=== PATIENT | female | born 1990 | race Caucasian/White ===

== ENCOUNTER 2021-12-17 13:45 | Outpatient (CLI) | payer OTHER, SELFPAY ==
--- NOTE | 2021-12-17 14:00 | CRLHL7_ITS ---
For Patients: As a result of the Century Cures Act, medical imaging exams and procedure reports are released immediately into your electronic medical record. You may view this report before your referring provider. If you have questions, please contact your health care provider. INDICATION: Evaluate anatomy. COMPARISON: none TECHNIQUE: Real time hare scale imaging of the fetus was performed as well as color Doppler analysis of the umbilical vessels. FINDINGS: Sonographic imaging demonstrates a single living intrauterine gestation. Fetus demonstrates a regular cardiac rate of 148 beats per minute. Fetus has a vertex position. The placenta lies anteriorly without evidence of placenta previa. The edge of the placenta is located 6.9 cm from the internal cervical os. Amniotic fluid volume appears normal. Single deepest vertical pocket: 5.0 cm. The cervix is closed and measures 3.5 cm in length. The composite ultrasound gestational age is calculated at 21 weeks 0 days with an estimated sonographic due date of 04/29/2022. The estimated weight is 408 grams which lies at the 65th %. The following biometric measurements were obtained: Biparietal diameter: 4.7 cm/20 weeks 1 day 23rd% Head circumference: 18.7 cm/21 weeks 0 days 46th% Abdominal circumference: 16.5 cm/21 weeks 4 days 66th% Femur length: 3.5 cm/21 weeks 0 days 47th% The HC/AC ratio measures: 1.13 range (1.06-1.25) On anatomic survey, there is a normal appearance of the cerebral ventricles, cavum septi pellucidi, cisterna magna and cerebellum. The nose, lips, and facial profile appear normal. The cervical, thoracic and lumbar spine are well visualized and appear normal. There is a normal four-chamber heart view and the left and right ventricular outflow tracts appear normal. The diaphragm and stomach appear normal. The kidneys and bladder also appear normal. There is a normal three-vessel cord and cord insertion site. The four extremities appear normal. IMPRESSION: Normal OB ultrasound exam with concordance of clinical and sonographic dating. No intrinsic abnormalities noted on anatomic survey. Dictated by Shaan Cordero MD @ 12/17/2021 4:05:26 PM (Electronically Signed)
== END 2021-12-17 13:46 | disposition home or self-care (01) ==
LOC: US 13:46
PROVIDERS: Visit Provider Obstetrics & Gynecology
DX: Z34.92 Encounter for supervision of normal pregnancy, unspecified, second trimester (principal); Z3A.21 21 weeks gestation of pregnancy
CPT/HCPCS: 76805

== ENCOUNTER 2022-02-11 14:59 | Outpatient (CLI) | payer OTHER, SELFPAY ==
--- OUTSIDE RECORDS SUMMARY | 2022-02-11 11:06 | XMS_ITS | Clinical Summary ---
:1990 Author Organization [facility] [place] [address] Care Team Providers Name Role Phone Tara Villalta MD Primary Care Provider [phone] Tara Villalta MD Unavailable Allergies Active Allergy Reactions Severity Noted Date Comments Sulfa (Sulfonamide Antibiotics) Hives 6 Medications Medication Sig Dispensed Refills Start Date End Date Status vit 28/iron Take 1 Tablet by 0 07/09/2021 Active fum/folic (multivitamin mouth once folic acid 1 daily. mg) meclizine (ANTIVERT) 25 1 oral every 4 30 Tablet 1 09/10/2021 Active mg tabletIndications: hours-6hours as Vomiting or nausea of needed nausea ondansetron (ZOFRAN ODT) Place 1 Tablet 30 Tablet 0 09/10/2021 Active 4 mg disintegrating (4 mg) on the tabletIndications: tongue every 8 Vomiting or nausea of hours if needed for Nausea/Vomiting. Active Problems Problem Noted Date Pap smear for cervical cancer screening 06/26/2021 Overview: 06/2021 NIL. PLAN: Pap/HPV testing due 2024 Pelvic pain 01/27/2020 Palpitations 10/14/2018 Ureteral stone 10/14/2018 Overview: 09/2018: Your kidney stone was a calcium oxalate stone. In terms of what you can do to try to reduce future stones, evidence shows that consistent high fluid intake (ideally 2L of urine output daily) and a norm al-calcium, reduced-animal protein, and low-salt diet is the most effective thing you can do to reduce the risk of further kidney stones. Avoid calcium supplements BUT be sure to get good calcium in your diet from dairy and dark green veggies. 3 servings a day is appropriate. Limiting non- dairy animal protein has been shown to be helpful- -strict avoidance is not necessary, but trend toward a veggie-based protein diet and have animal protein less than daily. Finally, limit sodium by not adding it to cooking and eating fresh food that you prepare as much as possible. At this point, no medications are recomm ended. IF you have recurrent stone despite the above diet, then we should do a 24 hour urine study to assess different aspects of your urine. SUZY (acute kidney injury) 08/04/2018 Chronic groin pain, left 03/21/2017 Overview: Pain is worse with sitting and rest, bet ter with movement. Chronic since 11/2016 with normal pelvic ultrasound, negative GC testing after treatment. Had chlamydia in the past, salpingogram showed filling of the full left fallopian tube, but dy e did not flow out into the peritoneum so wondering about pertubal adhesion. No gastrointestinal symptoms. CT abdomen and pelvis showed bilateral non-obstru cting nephrolithiasis (2mm on right, 2-3 mm on the left). On exam 10/20/17 patient really focused on the pain and pointed to her groin. Unremarkable hip exam we have not yet done x-rays to assess for cam deformity suggesting impingement syndro me. 10/14/18 Tara Villalta MD Secondary amenorrhea 01/09/2017 Overview: No menses 09/21/2016-02/11. Normal pelvic ultrasound 11/2016. Labs normal and progesterone withdrawal challenge started 02/10/17 with immediate withdrawal bleeding. 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 Chlamydia infection 09/24/2016 01/09/2017 Depression 06/29/2015 10/15/2018 Overview: Establishing with Elza Gonzalez, sertralin e 50mg daily Encounters Date Type Specialty Care Team Description 01/18/2022 Lab Requisition Frederic Sandoval MD from Last 3 Months Immunizations Name Administration Dates Next Due COVID-19 vaccine (YR.MRKT 06/09/2020, 05/19/2020 30mcg/0.3mL) PF, MDV DTaP 07/07/1997, 01/09/1994, 03/26/1993, 01/08/1993, 1992 Hepatitis A (Peds) 08/03/2007, 11/22/2006 Hepatitis B (Peds) 05/08/1993, 1992, 1992 Hib Conjugate, Unspecified 01/09/1994, 03/26/1993, 3, 1992 Human Papilloma Virus Vaccine 08/03/2011, 12/24/2010, 2010 Inactivated Polio Vaccine 07/07/1997, 03/26/1993, 01/08/1993 , 1992 Influenza A (H1N1), Inactivated 04/24/2009 Influenza, IIV4 01/19/2020, 01/25/2019, 01/07/2018, 01/06/2017, 01/29/2016 Influenza, IIV4 (=>6mos) MDV 02/20/2021 MMR 07/07/1997, 10/14/1993 Meningococcal Vaccine 08/03/2011, 11/17/2006 Meningococcal, Unspecified 08/03/2011, 11/17/2006 Td, Preservative Free (age >= 7 Years) 08/31/2003 Tdap 07/09/2021, 10/22/2010 Tuberculin (PPD) 07/15/2016 Varicella Vaccine 10/22/2010, 02/06/1995 Family History Medical History Relation Name Comments Other Brother Hemochromatosis Diabetes Father Hypertension Father Endometriosis Maternal Aunt 1 Endometriosis Maternal Aunt 2 Alzheimer's disease Maternal Grandmother Thyroid Disease Mother Cancer-breast No Family History Cancer-colon No Family History Cancer-ovarian No Family History Relation Name Status Comments Brother Father Maternal Aunt 1 Maternal Aunt 2 Maternal Grandmother Mother Social History Tobacco Use Types Packs/Day Years Used Date Never Smoker Smokeless Tobacco: Never Used Alcohol Use Standard Drinks/Week Comments Not Currently 3 (1 standard drink = 0.6 oz pure alcoho l) 3 drinks per week Alcohol Habits Answer Date Recorded How often do you have a drink containing alcohol? 2-4 times a month 10/14/2018 How many drinks containing alcohol do you have on a 1 or 2 10/14/2018 typical day when you are drinking? How often do you have six or more drinks on one Never 10/14/2018 occasion? Comment: 3 drinks per week 05/02/2017 Estimated Date of Delivery Comments Yes 04/19/2022 Based on last menstr ual period of 07/13/2021 Sex Assigned at Date Recorded Not on file Obstetrics History Para Term AB IAB SAB Ectopic Multiple Living Live Births 1 0 0 0 0 0 0 0 0 0 0 Date Outcome GA Total Labor/2nd/3rd Weight Sex Delivery Anes PTL Pau A 1 A5 Name Clin Labor Current OB Episode Summary Episode Dates Estimated Date of Pregravid Weight TWG (As of ) Delivery 2021 - Present 04/19/2022 (02/11/2022) Progress Notes 2021 - 8w0d - Malka Norton MD FIRST OB VISIT HPI: Deanne Smith is a 31 y.o. fe male at 8 week with sánchez intrauterine here today for a initial OB exam. Estimated due date is 04/19/2022. based on LMP, but periods were very irregular leading up to . Nausea/Vomiting: yes nausea, no vomiting and is managing with B6, unisom for now Breast tenderness: yes Fatigue: yes Bleeding: no Taking vitamins: yes Options of sequential screen, cell-free DNA testing, amniocentesis were discussed. Patient is interested in pursuing testing. AMA: no Previous : no OB History Para Term AB Living 1 0 0 0 0 0 SAB IAB Ectopic Multiple Live Births 0 0 0 0 0 # Outcome Date GA Lbr Richard/2nd Weight Sex Delivery Anes PTL Lv 1 Current Past Medical History: . Date ? ? Anxiety ? ? Chlamydia infection 09/24/2016 ? ? Depression Successfully treated with sertraline in the past ? ? 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 ? Pap smear for cervical cancer screening 06/2021 NIL. PLAN: Pap/HPV testing due Past Surgical History: . Laterality Date ? ? LITHOTRIPSY 2018 and ureteral stent placement ? ? NERVE BLOCK 09/2011 Hyperhidrosis ? ? PELVIC LAPAROSCOPY 2019 normal Family History Problem Relation Age of Onset ? ? Other Brother Hemochromatosis ? ? Endometriosis Maternal Aunt ? ? Endometriosis Maternal Aunt ? ? Thyroid Disease Mother 60 ? ? Diabetes Father 60 ? ? Hypertension Father 60 ? ? Alzheimer's disease Maternal Grandmother ? ? Cancer-breast No Family History ? ? Cancer-ovarian No Family History ? ? Cancer-colon No Family History Social History Tobacco Use ? ? Smoking status: Never Smoker ? ? Smokeless tobacco: Never Used Substance Use Topics ? ? Alcohol use: Not Currently Alcohol/week: 3.0 standard drinks Types: 3 Standard drinks or equivalent per week Comment: 3 drinks per week Current Outpatient Medications Medication Sig ? ? vit 28/iron fum/folic (multivitamin folic acid 1 mg) Take 1 Tablet by mouth once daily. No current facility-administered medicat ions for this visit. Medications have been reviewed by me and are current to the best of my knowledge and ability. ALLERGIES Sulfa (sulfonamide antibiotics) MENTAL HEALTH HISTORY History of psychiatric diagnosis: Nomi bowen, now doing well Current mental health provider: not donnie saldana Currently taking any psychiatric medicat ions? No INFECTION HISTORY Current Drug Use: none Relevant infection history from OB [facility] ionnaire: none REVIEW OF SYSTEMS Comprehensive ROS complete and negative other than noted in HPI and on OB Questionnaire. PHYSICAL EXAM BP 110/64 (Cuff Site: Right Arm, Positio n: Sitting, Cuff Size: Adult Regular) Pulse 58 Ht 1.695 m (5' 6.75) Wt 53.3 kg (117 lb 6.4 oz) LMP 07/13/2021 SpO2 100% BMI 18.53 kg/m?? General Appearance: Alert, appropriate a ppearance for age. No acute distress. HEENT Exam: Grossly normal. Neck/Thyroid Exam: Supple, no masses, no elysia or enlargement. Lungs: Clear to auscultation bilaterally . Breast Exam: Not indicated. Cardiovascular Exam: Regular rate and rh ythm. S1, S2, no murmur. Abd: Soft, non-tender, no masses or orga nomegaly. Skin: no rashes or lesions. Lymphatics: no nodes palpable. Psychiatric Exam: Alert and oriented x 3 , appropriate affect. Pelvic Exam: Not indicated ASSESSMENT/PLAN 31 y.o. at Unknown with singleto n intrauterine . ICD-10-CM 1. Encounter for supervision of normal f irst in first trimester Z34.01 US OB 1ST TRI SINGLE TA ANTI HIV 1/2 ABORH TYPE ANTIBODY SCREEN HBSAG (HBS) TREPONEMA PALLIDUM RUBELLA IMMUNE STATUS UA W/ SEDIMENT EXAM REFLEXED PER CRITER IA URINE CULTURE CBC AND DIFFERENTIAL Satisfactory exam. Demonstrates appropriate and health-seeking behaviors toward her . Verbalizes good understanding of care schedule and the importance of coming to each visit as scheduled. Start/continue v itamins. Reviewed labs. She was encouraged to call the office with any questions or concerns. Body mass index is 18.53 kg/m??. Diet and expected weight gain discussed with patient. DEPRESSION SCREEN PHQ Depression Screening 01/04/2020 022 Date of PHQ exam (doc flow) 01/04/202006/26 1. Lack of interest/pleasure 0 - Not at all 0 - Not at all 2. Feeling down/depressed 0 - Not at all 1 - Several days PHQ-2 TOTAL SCORE 0 1 3. Trouble sleeping - 1 - Several days 4. Decreased energy - 0 - Not at all 5. Appetite change - 0 - Not at all 6. Feelings of failure - 0 - Not at all 7. Trouble concentrating - 0 - Not at al l 8. Activity level - 0 - Not at all 9. Hurting yourself - 0 - Not at all PHQ-9 TOTAL SCORE - 2 PHQ-9 Severity Level - none Functional Impairment - somewhat difficu lt Some recent data might be hidden Intervention: Not Depressed Malka Norton MD Last Filed Vital Signs Vital Sign Reading Time Taken Comments Blood Pressure 110/64 2021 9:18 AM CDT Pulse 58 2021 9:18 AM CDT Temperature 37.1 ??C (98.8 ??F) 08/27/2021 4:15 PM CDT Respiratory Rate 14 03/03/2021 12:36 PM CDT Oxygen Saturation 100% 2021 9:18 AM CDT Inhaled Oxygen Concentration - - Weight 53.3 kg (117 lb 6.4 oz) 2021 9:18 AM CDT Height 169.5 cm (5' 6.75) 2021 9:18 AM CDT Body Mass Index 18.53 2021 9:18 AM CDT Plan of Treatment Health Maintenance Due Date Last Done Comments Pneumococcal series for age 19-64 1998 (1 - PCV) Hepatitis C screening for age 0509/07/2010 18-79 COVID-19 vaccine series (3 - 08/04/2020 06/09/2020, 021 Booster for Pfizer series) Influenza for age 9-49 12/27/2021 02/20/2021, 01/19/2020, 01/25/2019, Additional history exists Depression screening for age 12+ 07/11/2022 07/11/2021, , 01/04/2020, Additional history exists BMI (ht and wt on same day) for 2022 2021, 0505/2021, age 18+ 07/09/2021, Additional history exists Pap test for age 21-65 07/09/2024 07/09/2021, 10/14/2018, 06/28/2015 Tetanus booster 07/10/2031 07/09/2021, 10/22/2010, 08/31/2003 Tdap Completed 07/09/2021, 10/22/2010 Procedures Procedure Name Priority Date/Time Associated Diagnosis Comme nts LAB TRACKING EVENT Routine 01/17/2022 2:30 PM CDT PATH TISSUE EXAM Routine 01/17/2022 2:30 PM Resul ts for this CDT procedure are i n the results section. from Last 3 Months Results LAB TRACKING EVENT (01/17/2022 2:30 PM CDT) Specimen Anatomical Collection Method Collection Time Receive d Time (Source) Location / / Volume Laterality Other (Other) Client Collect / 01/17/2022 2:30 PM 12/28 6:59 Unknown CDT PM CDT Frederic Sandoval MD LAB BILL ONLY Performing Organization Address City/State/ZIP Code Phon e Number [facility] [id number] [place] [address] LABORATORY-CENTRAL 2000 LABORATORY PATH TISSUE EXAM (01/17/2022 2:30 PM CDT) Component Value Ref Test Analysis Performed At [facility] gist Range Method Time Signature Case Report Pathology Report ?Case: [id number] ? 01/21/2022 RE[facility] Authorizing Provider: ??Soham zhong, Frederic Johnson MD ?? Collected: ? 01/17/2022 1430 ? 4:46 PM HEALTH Ordering Location: ? [facility] CENTRAL LAB ?Received: ?01/18/2022 1931 ? CDT ELÍAS MEDRANO Pathologist: ? Jaspreet Pan MD ? ENTRAL Specimen: ?Right Shoulde r ? LABORATORY Final SKIN, RIGHT SHOULDER, BIOPSY: 01/21/2022 [facility] Electronically Diagnosis 1. Consistent with lentigo 4:46 PM HEA LT signed by Viviane, 2. Negative for malignancy CDT LAB ORATORY-C Jaspreet Pierre MD ENTRAL on 01/22/20 at LABORATORY 4:46 PM Clinical Atypical nevus. 01/21/2022 [facility] Information 4:46 PM HEALTH CDT LABORATORY-C ENTRAL LABORATORY Gross A) Received in formalin, lab eled with the patient's name and right shoulder, is a 0.6 x 0.4 cm skin biopsy. There is a 0.2 x 0.2 cm flat brown- black ??lesion. The specimen is inked orange, trisected and entirely submitted in one cassette. 01/21/2022 [facility] Description 4:46 PM HEALTH SSS 01/18/2022 CDT LABORATORY-C ENTRAL LABORATORY Microscopic The final diagnosis is based on microscopic examination of appropriate sections of all specimens. 01/21/2022 [facility] Description 4:46 PM HEALTH The epidermis has elongation of the rete ridges in association with a bland lentiginous proliferation of melanocytes. There is associated basilar keratinocyte hyperpigmentation, and melanin pigment is a CDT LABORATORY-C lso present within the strat um corneum. The presence of orange ink is confirmed on tissue sections. ENTRAL LABORATORY Additional 01/21/2022 [facility] Information Interpreted at [facility] Laboratory, Central Laboratory - [address], [place] [address] 4:46 PM HEALTH CDT LABORATORY-C ENTRAL LABORATORY Specimen Anatomical Collection Method Collection Time Receive d Time (Source) Location / / Volume Laterality Other (Right 01/17/2022 2:30 PM 2 7:31 Shoulder) CDT PM CDT Frederic Sandoval MD PATHOLOGY/CYTOLOGY Performing Organization Address City/State/ZIP Code Phon e Number [facility] [address] [place] [address] LABORATORY-CENTRAL 2000 LABORATORY from Last 3 Months Insurance Payer Benefit Plan / Subscriber ID Effective Dates Phone Addre ss Type Group PREFERRED ONE PREFERRED ONE [id number] 2020-Enrique [address] [place] [address] Advance Directives Latest Code Status on File Code Status Date Activated Date Inactivated Comments Full Code 01/27/2020 8:43 AM 01/27/2020 3:39 PM Code Status Discussion: Not Discussed Care Teams Team Sports Sales Associate Relationship Specialty Start Date End Date Tara Villalta MD PCP - General Internal Medicine 06/28/[address] [place] [address] [id number] Tara Villalta MD Internal Medicine 06/28/[address] [place] [address] [phone]
[2022-02-12 23:42] LABS: Rapid Plasma Reagin (RPR) Non Reactive (Non Reactive)
== END 2022-02-11 15:00 | disposition home or self-care (01) ==
PROVIDERS: Visit Provider Obstetrics & Gynecology
DX: Z34.90 Encounter for supervision of normal pregnancy, unspecified, unspecified trimester (principal)
CPT/HCPCS: 86592

== ENCOUNTER 2022-03-08 13:45 | Outpatient (CLI) | payer OTHER, SELFPAY ==
--- OUTSIDE RECORDS SUMMARY | 2022-03-08 13:48 | XMS_ITS | Clinical Summary ---
:1990 Author Organization [facility] [facility] [place] [address] Care Team Providers Name Role Phone Tara Villalta MD Primary Care Provider [phone] Tara Villalta MD Unavailable Allergies Active [...] Name Administration Dates Next Due COVID-19 vaccine ([employer] 06/09/2020, 05/19/2020 30mcg/0.3mL) PF, MDV DTaP 07/07/1997, [...] of ) Delivery 2021 - Present 04/19/2022 (03/08/2022) Progress Notes 2021 - 8w0d - Malka [...] Organization Address City/State/ZIP Code Phon e Number [facility] [address] [place] [address] LABORATORY-CENTRAL 2000 LABORATORY PATH TISSUE EXAM (01/17/2022 2:30 PM CDT) Component Value Ref Test Analysis Performed At [facility] gist Range Method Time Signature Case Report Pathology Report ?Case: [id number] ? 01/21/2022 [facility] Authorizing Provider: ??Soham zhong, Frederic Johnson MD ?? Collected: ? 01/17/2022 1430 ? 4:46 PM HEALTH Ordering Location: ? [facility] CENTRAL LAB ?Received: ?01/18/2022 1931 ? CDT [...] appropriate sections of all specimens. 01/21/2022 [facility] Description 4:46 PM HEALTH The epidermis has elongation of the rete ridges in association with a bland lentiginous proliferation of melanocytes. There is associated basilar keratinocyte hyperpigmentation, and melanin pigment is a CDT LABORATORY-C lso present within the strat um corneum. The presence of orange ink is confirmed on tissue sections. ENTRAL LABORATORY Additional 01/21/2022 [facility] Information Interpreted at [facility] Laboratory, Central Laboratory - [address], [place] [address] 4:46 PM HEALTH CDT LABORATORY-C ENTRAL LABORATORY Specimen Anatomical Collection Method Collection Time Receive d Time (Source) Location / / Volume Laterality Other (Right 01/17/2022 2:30 PM 2 7:31 Shoulder) CDT PM CDT Frederic Sandoval MD PATHOLOGY/CYTOLOGY Performing Organization Address City/State/ZIP Code Phon e Number [facility] [address] [place] [address] LABORATORY-CENTRAL 2000 LABORATORY from Last 3 Months Insurance Payer Benefit Plan / Subscriber ID Effective Dates Phone Addre ss Type Group PREFERRED ONE PREFERRED ONE [id number] 2020-Enrique [address]REED [address] [place] [address] Advance Directives Latest Code Status on File Code Status Date Activated Date Inactivated Comments Full Code 01/27/2020 8:43 AM 01/27/2020 3:39 PM Code Status Discussion: Not Discussed Care Teams Digital Marketing Intern Relationship Specialty Start Date End Date Tara Villalta MD PCP - General Internal Medicine 06/28/[address] [place] [address] [id number] Tara Villalta MD Internal Medicine 06/28/[address] [place] [address] [phone]
--- NOTE | 2022-03-08 14:00 | CRLHL7_ITS ---
For Patients: As a result of the Cures Act, medical imaging exams and procedure reports are released immediately into your electronic medical record. You may view this report before your referring provider. If you have questions, please contact your health care provider. INDICATION: female measuring small for gestational age. The last menstrual period would indicate an estimated date of delivery of April 30, 2022. TECHNIQUE: Transabdominal obstetrical ultrasound. FINDINGS: Single living intrauterine in vertex presentation. Anterior and partly fundal placenta. heart rate 154 beats per minute. Normal amniotic fluid. Single deepest pocket measurement 6.9 cm. Biparietal diameter 8.2 cm, 33 weeks 0 days, 61st percentile. Head circumference 30.9 cm, 34 weeks 4 days, 70th percentile. Abdominal circumference 29.5 cm, 33 weeks 3 days, 79th percentile. Femur length 6.0 cm, 31 weeks 3 days, 14th percentile. Composite calculated ultrasound age 33 weeks 1 day with a sonographic due date of April 25, 2022. Estimated weight 2086 g which lies at the 57th percentile. The head to abdominal circumference ratio is 1.05 (0.96-1.11). Femur length to abdominal circumference ratio 20.5 (20.0-24.0). IMPRESSION: Single living intrauterine in vertex presentation. Composite calculated ultrasound age 33 weeks 1 day with a sonographic due date of April 25, 2022. This is concordant with the age based on the last menstrual period provided. Estimated weight lies at the 57th percentile. Dictated by Devon Vargas MD @ 03/08/2022 3:46:56 PM (Electronically Signed)
== END 2022-03-08 13:46 | disposition home or self-care (01) ==
LOC: US 13:46
PROVIDERS: Visit Provider Obstetrics & Gynecology
DX: O36.5930 Maternal care for other known or suspected poor fetal growth, third trimester, not applicable or unspecified (principal); Z3A.33 33 weeks gestation of pregnancy
CPT/HCPCS: 76816

== ENCOUNTER 2022-04-01 13:59 | Outpatient (CLI) | payer OTHER, SELFPAY ==
--- OUTSIDE RECORDS SUMMARY | 2022-04-01 14:42 | XMS_ITS | Clinical Summary ---
:1990 Author Organization [employer] [facility] [place] [address] Care Team Providers Name Role Phone Tara Villalta MD Primary Care Provider [phone] Tara Villalta MD Unavailable Allergies Active [...] Name Administration Dates Next Due COVID-19 vaccine (Lecere 06/09/2020, 05/19/2020 30mcg/0.3mL) PF, MDV DTaP 07/07/1997, [...] of ) Delivery 2021 - Present 04/19/2022 (04/01/2022) Progress Notes 2021 - 8w0d - Malka [...] 07/09/2021, 10/22/2010, 08/31/2003 Tdap Completed 07/09/2021, 10/22/2010 HIV for age 15-65 Completed 2021, 10/04/2016, 06/28/2015 Procedures Procedure Name Priority Date/Time Associated Diagnosis [...] Organization Address City/State/ZIP Code Phon e Number [facility] [address] [place] [address] LABORATORY-CENTRAL 2000 LABORATORY PATH TISSUE EXAM (01/17/2022 2:30 PM CDT) Component Value Ref Test Analysis Performed At [facility] gist Range Method Time Signature Case Report Pathology Report ?Case: [id number] ? 01/21/2022 REJI Authorizing Provider: ??Frederic Pan MD ?? Collected: ? 01/17/2022 1430 ? 4:46 PM HEALTH Ordering Location: ? [facility] LAB ?Received: ?01/18/2022 1931 ? CDT [facility] Pathologist: ? Jaspreet Pan MD ? ENTRAL [...] LABORATORY Additional 01/21/2022 [facility] Information Interpreted at [facility], Central Laboratory - [address], [place] [address] 4:46 PM HEALTH CDT LABORATORY-C ENTRAL LABORATORY Specimen Anatomical Collection Method Collection Time Receive d Time (Source) Location / / Volume Laterality Other (Right 01/17/2022 2:30 PM 2 7:31 Shoulder) CDT PM CDT Frederic Sandoval MD PATHOLOGY/CYTOLOGY Performing Organization Address City/State/ZIP Code Phon e Number [facility] [address] 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
[2022-04-02 14:28] LABS: Strep B DNA Probe POSITIVE (Negative)
[2022-04-02 14:29] LABS: Strep B Pen/Amox Allergy No
== END 2022-04-01 14:00 | disposition home or self-care (01) ==
LOC: NFLDREF 14:00
PROVIDERS: Visit Provider Obstetrics & Gynecology
DX: O98.513 Other viral diseases complicating pregnancy, third trimester (principal); U07.1 COVID-19; Z3A.35 35 weeks gestation of pregnancy
CPT/HCPCS: 87081; 87653

== ENCOUNTER 2022-04-15 13:49 | Outpatient (CLI) | payer OTHER, SELFPAY ==
--- NOTE | 2022-04-15 14:00 | CRLHL7_ITS ---
For Patients: As a result of the Century Cures Act, medical imaging exams and procedure reports are released immediately into your electronic medical record. You may view this report before your referring provider. If you have questions, please contact your health care provider. INDICATION: Follow-up growth, BPP TECHNIQUE: Real time hare scale imaging of the fetus was performed. COMPARISON: 03/08/2022 FINDINGS: Sonographic imaging demonstrates a single living intrauterine gestation. Fetus demonstrates a regular cardiac rate of 167 beats per minute. Fetus has a vertex position. The placenta lies anteriorly. Amniotic fluid volume appears normal and there is a single deepest pocket of 4.3 cm. The estimated weight is 3084gm which lies at the 38th %. On the prior OB ultrasound dated 03/08/2022 the estimated weight was at the 57th percentile. BPD 22nd percentile. HC 76th percentile. AC 51st percentile. FL 6th percentile. The fetus was active and demonstrated normal breathing movements. There was normal flexion and extension of the trunk and extremities. IMPRESSION: Normal biophysical profile score 8/8. Sonographic gestational age 37 weeks 1 day and sonographic due date of 05/05/2022. Sonographic age is 5 days behind the clinical age. Estimated weight 38th percentile. Abdominal circumference 51st percentile. Dictated by Shaan Cordero MD @ 04/15/2022 2:54:05 PM (Electronically Signed)
== END 2022-04-15 13:50 | disposition home or self-care (01) ==
LOC: US 13:50
PROVIDERS: Visit Provider Obstetrics & Gynecology
DX: O98.513 Other viral diseases complicating pregnancy, third trimester (principal); U07.1 COVID-19; Z3A.37 37 weeks gestation of pregnancy
CPT/HCPCS: 76816; 76819

== ENCOUNTER 2022-04-26 07:09 | Inpatient (IN) | payer OTHER, SELFPAY ==
[2022-04-26] VITALS (60 sets, daily range): BP systolic 93–168; BP diastolic 51–95; PULSE 57–107; RESP 16; TEMP 36.4–37; O2SAT 96–100; BMI 21.7
[2022-04-26] MEDS: SODIUM CHLORIDE 0.9 % (FLUSH) 10 ML SYRINGE IVF (07:55)
[2022-04-26] MEDS: LACTATED RINGERS 1000 ML 1,000 ML 125 ML IV ×2 (08:02→13:34)
[2022-04-26] MEDS: AMPICILLIN 2 GM in 0.9 % SODIUM CHLORIDE Mini-bag 100 ML IVPB (08:03)
[2022-04-26] MEDS: OXYTOCIN 30 unit/500 ML in NS 30 UNIT/500 ML BAG IVPB (08:20)
[2022-04-26 08:40] LABS: SARS PCR* Negative SARS-CoV-2 (Negative)
--- NOTE | 2022-04-26 08:55 | P.LDBA_ITS ---
Subjective History of Present Illness Time Seen by Provider: : Date Seen: 04/26/22 Narrative: Patient is being admitted to Labor and Delivery for elective induction of labor with favorable cervix. She is a 31 year old at 39 3/7 weeks gestation. Her full history and physical was dictated by Dr. Dawson on 04/15/2022. Please see this for details. She is comfortable today. Fetus is active. Denies contractions. OB PROBLEM LIST: 1. Nausea and vomiting * Failed vitamin B6 and Unisom. Zofran was not helpful. * 10/15/2021: Promethazine 2. Transfer at 11 weeks and 6 days labs 09/07/2021: A positive, negative antibody screen, hemoglobin 13.5, platelets 270, rubella immune, RPR negative, hepatitis surface antigen negative, gonorrhea and Chlamydia negative, urine culture revealed no growth. Pap 07/09/2021: NIL 3. COVID positive during (early 2nd trimester) * Developed fever and sore throat on 10/30/2021, tested positive * Growth ultrasounds at 32 (EFW 2086 g, 57%, SDP 6.9 cm, BPD 61%, HC 70%, AC 79%, FL 14%) and 36 weeks gestation * Consider antepartum testing: ordered on 03/25/22 to start next week (36 weeks), growth US to be performed at 37 weeks * Growth US at 37 6/7 weeks: EFW: 3084 g, 38th percentile. * Offer IOL at 39 weeks First-trimester ultrasound 09/21/2021: Single IUP at 8 weeks and 3 days with an ROSI of 04/30/2022. This is compared to LMP dating of 04/19/2023. Final ROSI reassigned by ultrasound. OB - H&P: Exam Physical Exam: Vital signs: Temp Pulse Resp BP Pulse Ox 98.4 F 71 16 116/68 99 04/26/22 08:24 04/26/22 08:19 04/26/22 08:24 04/26/22 08:19 04/26/22 07:24 Constitutional: Constitutional: no acute distress Routine HEENT Exam: Head: Present normal inspection Routine Respiratory Exam: Respiratory: Absent respiratory distress Routine Cardiovascular Exam: Cardiovascular: RRR Detailed Labor and Delivery Exam: Patient Gravid: yes Dilation (cm): 4 (4.5) Effacement (%): 90 Cervix position: mid Consistency: soft Contraction frequency (min): 0 Fetus (Single): Station: 0 Heart Rate Baseline: 150 Project Designer Variability: Moderate (6-25) Routine Extremities Exam: Extremities: Absent calf tenderness or pedal edema Routine Neurological Exam: Present alert and oriented X3 Routine Psychiatric Exam: Present normal affect OB - Problem Based A/P Additional Plan (1) COVID-19 affecting in third trimester: Status: Acute (2) Term : Status: Acute Plan GBS prophylaxis initiated. Labor pain control options reviewed. Delivery/Labor/Induction Plan Plan: induction Induction method: per misoprostol protocol
[2022-04-26] MEDS: AMPICILLIN 1 GM in 0.9 % SODIUM CHLORIDE Mini-bag 100 ML IVPB ×2 (11:58→18:37)
--- NOTE | 2022-04-26 12:49 | PM.OBPNL ---
Subjective Time Seen by Provider: 12:25 Date Seen: 04/26/22 Narrative: Patient feels cramping, some back pain. Objective Vital Signs: Last Vital Signs Temp 98.4 F 04/26/22 12:01 Pulse 65 04/26/22 12:00 Resp 16 04/26/22 12:01 BP 125/73 04/26/22 12:00 Pulse Ox 99 04/26/22 07:24 Pelvic Exam Dilation (cm): 5.5 Effacement (%): 95 Station: 0 Contractions Monitor mode: External Contraction Frequency: 2 min Contraction pattern: Regular Contraction intensity: Mild Pitocin Rate (mU/min): 3 Assessment Station: 0 Amniotic Membrane Status: AROM (clear fluid) Heart Rate Baseline: 150 Plan Plan: AROM. Epidural prn.
[2022-04-26] MEDS: ROPIVACAINE 0.2% 100 ml 100 ML 12 MG EPIDURAL (14:13)
--- NOTE | 2022-04-26 14:26 | P.ANBPRC_ITS ---
[facility] Medical History (Updated 04/26/22 @ 08:59 by Dana Thacker MD) care Social History Smoking Status: Never smoker Meds Home Medications and Allergies Home Medications Medication Instructions Recorded Confirmed Type PNV no.151-iron 27 mg-folic 800 1 cap PO DAILY 11/12/21 04/26/22 History mcg-omega3 260 eq-tow-psw-fish capsule ( Multi-DHA (with vitamin K)) Allergies Allergy/AdvReac Type Severity Reaction Status Date / Time Sulfa Antibiotics Allergy Unknown Uncoded 04/25/22 13:38 Results Labs Labs: Laboratory Results - last 24 hr 04/26/22 07:39 SARS-CoV-2 (PCR) Negative SARS-CoV-2 Vital Signs Vital Signs: Last Vital Signs Temp 98.5 F 04/26/22 14:17 Pulse 63 04/26/22 14:25 Resp 16 04/26/22 14:17 BP 108/53 L 04/26/22 14:25 Pulse Ox 99 04/26/22 14:21 Weight: 62.959 kg Height: 170.18 cm Anesthesia Procedures Epidural Insertion Patient Location: OB Start Time: 13:45 Stop Time: 14:30 Start Date: 04/26/22 Stop Date: 04/26/22 Reason for Block: procedure for pain Patient Position: sitting Performed By: Quinton Qureshi Preanesthetic Checklist: IV checked, risks and benefits discussed, surgical consent, monitors and equipment checked, pre-op evaluation, timeout performed and anesthesia consent Prep: chlorhexidine gluconate Monitoring: blood pressure monitoring, continuous pulse oximetry and heart rate Approach: midline Vertebral Space: lumbar (1-5) Epidural Technique: EMANUEL saline Needle Type: Tuohy needle Injection Technique: continuous catheter Needle gauge: 17 Needle Length (cm): 10 cm Needle Insertion Depth (cm): 3 Catheter Gauge: 19 Catheter Type: multi-orifice Catheter at skin depth (cm): 11 Test Dose Result: negative and lidocaine 1.5% with epinephrine 1 to 200,000
--- NOTE | 2022-04-26 16:57 | P.OBPN_ITS ---
Subjective Time Seen by Provider: 16:57 Date Seen: 04/26/22 Narrative: Comfortable with epidural. Feels some pressure with contractions. Objective Vital Signs: Last Vital Signs Temp 98.4 F 04/26/22 16:25 Pulse 80 04/26/22 16:44 Resp 16 04/26/22 16:25 BP 117/63 04/26/22 16:44 Pulse Ox 99 04/26/22 14:26 Pelvic Exam Dilation (cm): 10 Effacement (%): 100 Station: +1 Contractions Monitor mode: External Contraction pattern: Regular Contraction intensity: Mild Pitocin Rate (mU/min): 2 Assessment Station: +1 (LOP position) Amniotic Membrane Status: AROM (clear fluid) Heart Rate Baseline: 145 Detention Variability: Moderate (6-25) Monitor Accelerations: Present Plan Plan: Reposition on hands/knees with smith bag. Reassess in 30 minutes of prn.
--- NOTE | 2022-04-26 19:39 | PM.OBPRCVD ---
Procedure Delivery date: 04/26/22 Procedure Done: Global Intrapartal Events: Labor Induction Induction method: per pitocin protocol Delivery augmentation: rupture of membranes Delivery monitor: external FHT and external uterine Route of delivery: Laceration description: Labial (bilateral first degree) Delivery repair: Vicryl (3-0) Estimated blood loss (mL): 110 Anesthesia type: Epidural Disposition: floor Complications: None. Narrative: The patient is a 31 year-old G 1 P 0 admitted on 04/26/2022 at 39 Weeks, 3 Days gestation for elective induction of labor.? Cervical exam on admission was 4.5 cm/90 % effaced/0 station with membranes intact in vertex presentation.? heart rate demonstrated baseline 150 bpm with moderate variability, + accelerations, - decelerations; a category 1 tracing.? AROM occurred at 1225 with clear fluid. ? Labor Analgesia:? Epidural ? Pitocin:? Yes ? Labor onset:? 1300 ? Complete:? 1736 ? Pushing:? 1739 ? heart tones during second stage were 140 baseline with variable decelerations to 120s. ? At 1907 a viable male delivered in vertex OA presentation over intact perineum via spontaneous vaginal delivery.? was placed on maternal abdomen.? Cord was clamped and cut after a 30-60 second delay.? Nose and mouth were bulb suctioned.? Infant weight pending.? 9 at 1 minute and 9 at 5 minutes.? Shoulder dystocia: No.? Nuchal cord: No. ? Placenta delivered spontaneously and complete at 1913 with a 3 vessel cord. ? Mother and were stable after delivery. ? Lacerations:? Bilateral labial, repaired with 3-0 vicryl. ? Blood loss: 110 mL. Blood loss measurement type: QBL ? Sponge and needles counts are correct. Gender: Male presentation: vertex Placental Delivery Description: Spontaneous Cord Description: 3 Vessels
[2022-04-27 04:47] VITALS: BP 104/66; PULSE 63; RESP 14; TEMP 36.7; O2SAT 96
[2022-04-27 06:53] LABS: Hemoglobin* 11.2 gm/dL (12.0-16.0)
--- NOTE | 2022-04-27 10:10 | P.DS_ITS ---
DS: Providers Provider Date Seen: 04/27/22 Date of admission: 04/26/22 07:09 Primary care physician: Not a Local Provider Admitting Clinician: Dana Thacker MD Attending Physician on discharge: Stacy Dawson MD Date of Discharge: 04/27/22 DS: Diagnosis Discharge Diagnosis (1) Spontaneous vaginal delivery: Status: Acute Exam Narrative: Exam Narrative: VITAL SIGNS: As noted above. GENERAL APPEARANCE: Alert, cooperative female in no acute distress. MOOD & AFFECT: Normal. ABDOMEN: Soft, non-distended and nontender. Well contracted uterus : Normal lochia. EXTREMITIES: Nonedematous. Well perfused. Nontender. Const: Vital Signs, click to edit/add: Vital Signs - 24 hr 04/26/22 10:53 04/26/22 12:00 04/26/22 12:01 Temperature 98.4 F Pulse Rate 57 L 65 Pulse Rate [Pulse Oximeter] Respiratory Rate 16 Blood Pressure 122/77 125/73 Blood Pressure [Le ft Arm] Pulse Oximetry Oxygen Delivery Me thod 04/26/22 13:19 04/26/22 13:19 04/26/22 13:51 Temperature 98.5 F Pulse Rate 82 Pulse Rate [Pulse Oximeter] Respiratory Rate 16 Blood Pressure 127/81 Blood Pressure [Le ft Arm] Pulse Oximetry 98 Oxygen Delivery Me thod 04/26/22 13:56 04/26/22 14:01 04/26/22 14:06 Temperature Pulse Rate Pulse Rate [Pulse Oximeter] Respiratory Rate Blood Pressure Blood Pressure [Le ft Arm] Pulse Oximetry 99 98 100 Oxygen Delivery Me thod 04/26/22 14:08 04/26/22 14:10 04/26/22 14:11 Temperature Pulse Rate 75 63 Pulse Rate [Pulse Oximeter] Respiratory Rate Blood Pressure 127/74 118/67 Blood Pressure [Le ft Arm] Pulse Oximetry 100 Oxygen Delivery Me thod 04/26/22 14:12 04/26/22 14:14 04/26/22 14:16 Temperature Pulse Rate 62 65 71 Pulse Rate [Pulse Oximeter] Respiratory Rate Blood Pressure 120/60 114/63 107/59 L Blood Pressure [Le ft Arm] Pulse Oximetry 98 Oxygen Delivery Me thod 04/26/22 14:17 04/26/22 14:18 04/26/22 14:21 Temperature 98.5 F Pulse Rate 61 Pulse Rate [Pulse Oximeter] Respiratory Rate 16 Blood Pressure 106/53 L Blood Pressure [Le ft Arm] Pulse Oximetry 99 Oxygen Delivery Me thod 04/26/22 14:25 04/26/22 14:26 04/26/22 14:28 Temperature Pulse Rate 63 68 Pulse Rate [Pulse Oximeter] Respiratory Rate Blood Pressure 108/53 L 111/55 L Blood Pressure [Le ft Arm] Pulse Oximetry [facility] 04[facility]/22 14:45 04/26/22 15:00 04/26/22 15:10 Temperature 97.9 F Pulse Rate 71 63 Pulse Rate [Pulse Oximeter] Respiratory Rate 16 Blood Pressure 98/53 L 93/51 L Blood Pressure [Le ft Arm] Pulse Oximetry Oxygen Delivery Nv thod 04/26/22 15:14 04/26/22 15:30 04/26/22 15:45 Temperature Pulse Rate 66 81 74 Pulse Rate [Pulse Oximeter] Respiratory Rate Blood Pressure 101/58 L 116/59 L 106/62 Blood Pressure [Le ft Arm] Pulse Oximetry [facility] 04/26/22 16:01 04/26/22 16:15 04/26/22 16:20 Temperature Pulse Rate 73 92 71 Pulse Rate [Pulse Oximeter] Respiratory Rate Blood Pressure 111/61 168/95 H 117/53 L Blood Pressure [Le ft Arm] Pulse Oximetry [facility] 04/26/22 16:25 04/26/22 16:30 04/26/22 16:44 Temperature 98.4 F Pulse Rate 77 80 Pulse Rate [Pulse Oximeter] Respiratory Rate 16 Blood Pressure 115/61 117/63 Blood Pressure [Le ft Arm] Pulse Oximetry [facility] 04/26/22 16:59 04/26/22 17:15 04/26/22 17:29 Temperature Pulse Rate 107 H 90 93 Pulse Rate [Pulse Oximeter] Respiratory Rate Blood Pressure 103/54 L 93/58 L 108/72 Blood Pressure [Le ft Arm] Pulse Oximetry Oxygen Delivery Nv thod 04/26/22 17:44 04/26/22 17:44 04/26/22 18:03 Temperature 98.5 F Pulse Rate 94 97 Pulse Rate [Pulse Oximeter] Respiratory Rate 16 Blood Pressure 101/68 111/57 L Blood Pressure [Le ft Arm] Pulse Oximetry Oxygen Delivery Me thod 04/26/22 18:10 04/26/22 18:17 04/26/22 18:30 Temperature 98.6 F Pulse Rate 90 78 Pulse Rate [Pulse Oximeter] Respiratory Rate 16 Blood Pressure 110/59 L 111/56 L Blood Pressure [Le ft Arm] Pulse Oximetry Oxygen Delivery Me thod 04/26/22 18:44 04/26/22 18:59 04/26/22 19:14 Temperature Pulse Rate 101 H 100 94 Pulse Rate [Pulse Oximeter] Respiratory Rate Blood Pressure 110/54 L 124/56 L 124/58 L Blood Pressure [Le ft Arm] Pulse Oximetry Oxygen Delivery Me thod 04/26/22 19:29 04/26/22 19:44 04/26/22 19:59 Temperature Pulse Rate 86 81 83 Pulse Rate [Pulse Oximeter] Respiratory Rate Blood Pressure 117/57 L 111/57 L 113/55 L Blood Pressure [Le ft Arm] Pulse Oximetry Oxygen Delivery Me thod 04/26/22 20:18 04/26/22 19:01 04/26/22 20:29 Temperature 98.6 F Pulse Rate 78 75 Pulse Rate [Pulse Oximeter] Respiratory Rate 16 Blood Pressure 109/60 117/64 Blood Pressure [Le ft Arm] Pulse Oximetry Oxygen Delivery Me thod 04/26/22 20:44 04/26/22 20:59 04/26/22 21:14 Temperature Pulse Rate 86 88 85 Pulse Rate [Pulse Oximeter] Respiratory Rate Blood Pressure 118/66 121/67 115/67 Blood Pressure [Le ft Arm] Pulse Oximetry Oxygen Delivery Me thod 04/26/22 21:44 04/26/22 23:50 04/27/22 04:47 Temperature 97.5 F L 98.1 F Pulse Rate 79 Pulse Rate [Pulse Oximeter] 86 63 Respiratory Rate 16 14 Blood Pressure 117/63 Blood Pressure [Le ft Arm] 112/69 104/66 Pulse Oximetry 96 96 Oxygen Delivery Me thod Room Air Room Air OB - DS: Summary Hospital Course Hospital Course: The patient is a 31 year old G 1 P 1001 at 394/7 weeks gestation that was admitted to the Center on 04/26/22 for induction of labor. She had an uncomplicated vaginal delivery. She delivered a viable male infant. She is breast feeding. the patient has done well. Peripartum Data delivery method: Vaginal Laceration description: Periurethral - 1st Degree Episiotomy description: None complications: none [place] Infant Gender: Male Discharge Plan: Home Time Spent with Patient Time attestation: Total time spent providing and/or coordinating discharge services: Discharge Plan Discharge Disposition: Home, Self-Care Date of Admission: 04/26/22 07:09 Attending Provider on Discharge: Stacy Dawson Primary Care Provider: Provider,Not a Local Condition: Stable Anticipated Discharge Date/Time: 04/27/22 10:16 Discharge Medications: New acetaminophen 500 mg Tablet 1,000 mg PO Q6H PRN (Reason: pain/fever) Qty: 30 0RF docusate sodium 100 mg Capsule 100 mg PO DAILY Qty: 30 0RF ibuprofen 600 mg Tablet 600 mg PO Q6H PRNQty: 30 0RF Continued Multi-DHA(with vit K) 27 mg iron-800 mcg-260 mg capsule 1 cap PO DAILY Discharge Orders: Discharge Order (Routine); Ordered 04/27/22 Ordered By: Stacy Dawson Patient Education: OB Vaginal/Breast Feeding Activity Level: Activity as Tolerated Activity Detail: Nothing vaginally for 6 weeks. Discharge Diet: Regular Follow Up Appointments: Stacy Dawson MD [Staff Physician] - Provider,Not a Local [Primary Care Provider] - Forms: Noquo Info Instructions Discharge Comments: Follow-up in clinic in 2 weeks for follow-up of mood and , follow-up for a regular visit at 6 weeks.
[2022-04-27 10:30] VITALS: BP 124/80; PULSE 70; RESP 16; TEMP 36.8; O2SAT 99
[2022-04-27] MEDS: IBUPROFEN 600 MG TABLET PO ×2 (11:49→19:08)
[2022-04-27] MEDS: DOCUSATE SODIUM 100 MG CAPSULE PO (11:50)
[2022-04-27 16:30] VITALS: BP 120/74; PULSE 71; RESP 16; TEMP 36.7; O2SAT 97
[2022-04-27] MEDS: ACETAMINOPHEN 500 MG TABLET 1000 MG PO (16:55)
[2022-04-27 23:10] VITALS: BP 106/69; PULSE 70; RESP 16; TEMP 36.7; O2SAT 98
[2022-04-28] VITALS (15 sets, daily range): BP systolic 106–124; BP diastolic 62–78; PULSE 58–66; RESP 16; TEMP 36.3–36.8; O2SAT 97–99
[2022-04-28] MEDS: IBUPROFEN 600 MG TABLET PO (06:17)
--- NOTE | 2022-04-28 08:47 | PM.ANBPRC ---
[facility] Medical History (Updated 04/27/22 @ 10:10 by Stacy Dawson MD) care Social History Smoking Status: Never smoker Meds Home Medications and Allergies Home Medications Medication Instructions Recorded Confirmed Type PNV no.151-iron 27 mg-folic 800 1 cap PO DAILY 11/12/21 04/26/22 History mcg-omega3 260 gg-jdp-zte-fish capsule ( Multi-DHA (with vitamin K)) Allergies Allergy/AdvReac Type Severity Reaction Status Date / Time Sulfa Antibiotics Allergy Unknown Uncoded 04/25/22 13:38 Results Vital Signs Vital Signs: Last Vital Signs Temp 98.1 F 04/28/22 07:48 Pulse 65 04/28/22 07:48 Resp 16 04/28/22 07:48 BP 124/78 04/28/22 07:48 Pulse Ox 98 04/28/22 07:48 O2 Del Method 04/28/22 07:48 Weight: 62.959 kg Height: 170.18 cm Anesthesia Procedures Epidural Blood Patch Patient Location: post-op Start Time: 09:15 Stop Time: 09:55 Reason for Blood Patch: spinal headache ADMISSION SPECIALIST: Rusty Colby CRNA Preanesthetic Checklist: IV checked, site marked, risks and benefits discussed, surgical consent, monitors and equipment checked, pre-op evaluation, timeout performed and anesthesia consent Pain (1-10): 8 Pain duration: Variable Pain Frequency: frequently Quality of Pain: pressure Pain exacerbated by: standing and sitting Pain Made Worse: head movement Pain made better: position change Diagnosis of PDPH: Yes Volume of Blood Injected (mL): 20 Patient Position: sitting Prep: Chloraprep Monitoring: cont pulse oximetry and BP monitoring Approach: midline Location: L3-4 Injection Technique: EMANUEL saline Injection Method: Touhy needle Needle Gauge Used: 17 Needle Length (cm): 8 cm Catheter Type: none Notes: Procedure preformed without complication. Pt states after 10min she is already feeling better. Advised pt to avoid lifting or straining for next 24hrs.
[2022-04-28] MEDS: LACTATED RINGERS 1000 ML 500 ML IV (09:00)
[2022-04-28] MEDS: DOCUSATE SODIUM 100 MG CAPSULE PO (14:53)
== END 2022-04-28 15:10 | disposition home or self-care (01) | DRG 807 ==
PROVIDERS: Admitting Provider Obstetrics & Gynecology; Visit Provider Obstetrics & Gynecology
DX: O99.824 Streptococcus B carrier state complicating childbirth (principal); Z37.0 Single live birth; O89.4 Spinal and epidural anesthesia-induced headache during the puerperium; O70.0 First degree perineal laceration during delivery; Z86.16 Personal history of COVID-19; Z3A.39 39 weeks gestation of pregnancy
CPT/HCPCS: 01967; 36415; 62273; 85018; 87635; 88307; A9270; J0290; J2795; J7120; S0020

== ENCOUNTER 2022-05-01 11:01 | Outpatient (CLI) | payer OTHER, SELFPAY ==
--- NOTE | 2022-05-01 17:00 | P.LACCB_ITS ---
Consult Note - Mom Date of Visit Date of visit: 05/01/22 national sales consultant: Kerri Cowart Visit Code: Visit Patient's Information Phone number: [phone] : 1 Para: 1 Allergies Sulfa Antibiotics Allergy (Unknown, Uncoded 05/10/22 10:57) Mother's Medical History: Medical History (Updated 04/27/22 @ 10:10 by Stacy Dawson MD) care Work Plans: returns to work in three months (PT for NH+C) Delivery Information Delivery type: Vaginal Weeks Gestation: 39.3 Gestational Age: AGA Weight: 3.465 kg Discharge Weight: 3.25 kg Baby's Information Baby's Age at Visit: 5 days Baby's Provider or Clinic: Dr. Gage Jaundice: Yes (to nipple line) Reason for Consult Reason for Consult: concerns for latch and how much he's taking when nursing Past Experience Past Experience: No Current Frequency of Day Feedings: every 2 - 3 hours around the clock Both Breasts: Yes Suck: fairly strong Latch: wie Length of Time: 10 - 15 minutes/side Pumping Pumping: No Supplementing EMB Supplement: No Formula Supplement: No Baby Elimination Number of Wet Diapers a Day: 3 - 6 Number of BM a Day: 2 - 3 Breast/Nipple Condition Breast Information: WNL Engorgement: No Maternal Nipple Condition - Left: Common Nipple Maternal Nipple Condition - Right: Common Nipple Sore Nipples: No Onsite Pre-Feed weight: 3.25 kg Post-Feed weight: 3.28 kg Milk Transferred (mL): 30 Pre-Nursing Left Nipple: Within Normal Limits Pre-Nursing Right Nipple: Within Normal Limits Post-Nursing Left Nipple: Within Normal Limits Post-Nursing Right Nipple: Within Normal Limits Assessments/Interventions Assessments/Interventions: Met with mom and this now 5 day old ex- term AGA baby for consult.? Mom reports she thinks is going well, but wanted a feeding assessment and has general questions.? Her other concerns include his lower frenulum, facial jaundice, and his umbilical stump.? She's nursing baby about every three hours on both sides and states a feeding session is 20 - 30 minutes.? Baby is sleepy at the breast, but easy to rouse.? She hasn't started pumping or supplementing him. Breasts WNL- symmetrical with rounded lower quadrants, intramammary distance is < 1.5 inches, mom reports positive breast changes in .? Nipples are everted and don't flatten or retract with compression; no damage noted.? Mom states has been comfortable almost from the start. Baby has gained 47 grams since his visit on 04/30 and is 6% below BW at five DOL.? Per mom he prefers to turn his head to the right and his right eye opens more widely; also reports he doesn't straighten his left leg as easily as his right.? His palate is WNL.? The upper frenulum is tight and the lower frenulum is close to the apex of the tongue and causes the tongue to have a heart shape when he raises it.? When sucking on a finger, the tongue does extend past the gum line.? He's jaundiced to the nipple line, TCB = 12.8 and per bili tool this level is WNL for his age.? His umbilical stump is covered by gel foam and tape applied before D/C, some of the stump that isn't covered is oozing a very little amount of blood onto his onesie and a washcloth.? Dr. Gage assessed it and reassured mom it looked good.? Mom to call clinic/go to ER if she notices an increase in bleeding. Mom latched baby to both sides in the cradle hold and he had a wide latch, taking in most of the areola.? His lower lip was tucked in slightly but mom didn't notice a difference in comfort or deepness of the latch when it was flanged out.? Baby nursed for about 20 minutes transferring 30 ml.? After weighing him, he continued to show feeding cues so mom put him back on the breast for another 5 - 10 minutes, but there was no additional transfer.? Plan: 1. Continue to nurse baby ALD (every 2 - 3 hours).? Suggested she offer both sides and work to keep him awake and actively nursing.? 2. No medical need to supplement. 3. No need to start pumping.? Suggested she practice nursing and get some rest in this first month.? 4. As baby has had good weight gain, transferred an appropriate amount, and mom has no pain/damage with nursing suggested there isn't a need for a dental referral as it relates to . 5. 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 6. Will f/u next week for a circumcision and umbilical cord check and in on 05/24 for a one month feeding weight. Could discuss a dental referral at that time if POC are concerned about future speech problems. Meds Home Medications and Allergies Home Medications Medication Instructions Recorded Confirmed Type PNV no.151-iron 27 mg-folic 800 1 cap PO DAILY 11/12/21 05/10/22 History mcg-omega3 260 [id number]-fish capsule ( Multi-DHA (with vitamin K)) Allergies Allergy/AdvReac Type Severity Reaction Status Date / Time Sulfa Antibiotics Allergy Unknown Uncoded 05/10/22 10:57
== END 2022-05-01 11:02 | disposition home or self-care (01) ==
LOC: OB LAC 11:02
PROVIDERS: Visit Provider Obstetrics & Gynecology
DX: Z39.1 Encounter for care and examination of lactating mother (principal)
CPT/HCPCS: 99211

== ENCOUNTER 2023-01-16 09:39 | Outpatient (CLI) | payer OTHER, SELFPAY | END 2023-01-16 09:40 | disposition home or self-care (01) | PROVIDERS: PCP Family Medicine; Visit Provider Family Medicine | DX: Z00.00 Encounter for general adult medical examination without abnormal findings (principal); F41.1 Generalized anxiety disorder; Z13.6 Encounter for screening for cardiovascular disorders | CPT/HCPCS: 80061; 84443 ==

== ENCOUNTER 2023-11-27 08:38 | Outpatient (CLI) | payer OTHER, SELFPAY ==
--- OUTSIDE RECORDS SUMMARY | 2023-11-28 10:36 | XMS_ITS | Clinical Summary ---
Author Organization [facility] Address [place], [place] [address] Care Team Providers Care Clinical Manager Home Care Name Role Phone Tara Villalta MD Primary Care Provider [phone] Tara Villalta MD Unavailable [phone] Allergies Active Allergy Reactions Criticality Noted Date Comments Sulfa (Sulfonamide Antibiotics) Hives 05/2015 Medications Medication Sig Dispensed Refills Start Date End Date Status vit 28/iron fum/folic (multivitamin folic acid 1 mg) Take 1 Tablet by mouth once daily. 0 07/09/2021 Active meclizine (ANTIVERT) 25 mg tabletIndications:Vomit ing or nausea of 1 oral every 4 hours-6hours as needed nausea 30 Tablet 1 09/10/2021 Active ondansetron (ZOFRAN ODT) 4 mg disintegrating tabletIndications:Vomit ing or nausea of Place 1 Tablet (4 mg) on the tongue every 8 hours if needed for Nausea/Vomiting . 30 Tablet 09/10/2021 Active Active Problems Problem Noted Date Diagnosed Date Pap smear for cervical cancer screening 06/27/19 Overview: 06/2021 NIL. PLAN: Pap/HPV testing due 06/2024 Pelvic pain 01/27/2020 Palpitations 10/14/2018 Ureteral stone 10/14/2018 Overview: 09/2018: Your kidney stone was a calcium oxalate stone. In terms of what you can do to try to reduce future stones, evidence shows that consistent high fluid intake (ideally 2L of urine output daily) and a normal-calcium, reduced-animal protein, and low-salt diet is the most effective thing you can do to reduce the risk of further kidney stones. Avoid calcium supplements BUT be sure to get good calcium in your diet from dairy and dark green veggies. 3 servings a day is appropriate. Limiting non-dairy animal protein has been shown to be helpful--strict avoidance is not necessary, but trend toward a veggie-based protein diet and have animal protein less than daily. Finally, limit sodium by not adding it to cooking and eating fresh food that you prepare as much as possible. At this point, no medications are recommended. IF you have recurrent stone despite the above diet, then we should do a 24 hour urine study to assess different aspects of your urine. SUZY (acute kidney injury) 08/04/2018 Chronic groin pain, left 03/21/2017 Overview: Pain is worse with sitting and rest, better with movement. Chronic since 11/2016 with normal pelvic ultrasound, negative GC testing after treatment. Had chlamydia in the past, salpingogram showed filling of the full left fallopian tube, but dye did not flow out into the peritoneum so wondering about pertubal adhesion. No gastrointestinal symptoms. CT abdomen and pelvis showed bilateral non-obstructing nephrolithiasis (2mm on right, 2-3mm on the left). On exam 10/20/17 patient really focused on the pain and pointed to her groin. Unremarkable hip exam we have not yet done x-rays to assess for cam deformity suggesting impingement syndrome. 10/14/18 Tara Villalta MD Secondary amenorrhea 01/09/2017 Overview: No menses 09/21/2016-02/11. Normal pelvic ultrasound 11/2016. Labs normal and progesterone withdrawal challenge started 02/10/17 with immediate withdrawal bleeding. 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 Chlamydia infection 09/24/2016 01/10/20 17 Depression 06/29/2015 10/15/2018 Overview: Establishing with Elza Gonzalez, sertraline 50mg daily Immunizations Name Administration Dates Next Due COVID-19 vaccine ([employer] 30mcg/0.3mL) PF, MDV 06/09/2020,05/19/2020 DTaP 07/07/1997, 4,03/26/1993,01/08,1992 Hepatitis A (Peds) 08/03/2007,11/22/2006 Hepatitis B (Peds) 05/08/1993,1992, 993 Hib Conjugate, Unspecified 01/09/1994,,01/08/1993,11/01 Human Papilloma Virus Vaccine 08/03/2011, 011,10/22/2010 Inactivated Polio Vaccine 07/07/1997,,01/08/1993,11/01 Influenza A (H1N1), Inactivated 04/24/2009 Influenza, IIV4 02/11/2022, 0,01/25/2019,01/07,01/06/2017,01/29/2016 Influenza, IIV4 (=>6mos) MDV 02/20/2021 MMR 07/07/1997,10/14/1993 Meningococcal Vaccine 08/03/2011,11/17/2006 Meningococcal, Unspecified 08/03/2011,11/17/2006 Td, Preservative Free (age >= 7 Years) 4 Tdap 02/28/2022,07/09/2021,10/22/2010 Tuberculin (PPD) 07/15/2016 Varicella Vaccine 10/22/2010,02/06/1995 Family History Medical History Relation Name Comments [...] Tobacco Use Types Packs/Day Years Used Date Smoking Tobacco: Never Smokeless Tobacco: Never Alcohol Use Standard Drinks/Week Comments Not Currently 3 (1 standard drink = 0.6 oz pur e alcohol) 3 drinks per week PHQ-2 Answer Date Recorded PHQ-2 TOTAL SCORE 1 07/09/2021 Social Connections Answer Date Recorded Frequency of Communication with Friends and Fami ly Not on file 04/28/2021 Financial Resource Strain Answer Date R ecorded Difficulty of Paying Living Expenses Not on file 04/28/2021 Difficulty of Paying Living Expenses Not on file 04/28/2021 Sex and Gender Information Value Date Recorded Sex Assigned at Not on file Gender Identity Not on file Sexual Orientation Not on file Obstetrics History Para Term AB IAB SAB Ectopic Multiple Livin g Live Births 1 0 0 0 0 0 0 0 0 0 0 Date Outcome GA Total Labor Labor/2nd/3rd Weight Sex Type Anes PTL Pau A1 A5 Name Clin Last Filed Vital Signs Vital Sign Reading Time Taken Comments Blood Pressure 122/78 12/27/2022 12:18 PM CDT Pulse 63 12/27/2022 12:18 PM CDT Temperature 37.2 ??C (98.9 ??F) 12/27/2022 12:18 PM C DT Respiratory Rate 18 12/27/2022 12:18 PM CDT Oxygen Saturation 99% 12/27/2022 12:18 PM CDT Inhaled Oxygen Concentration - - Weight 53.3 kg (117 lb 6.4 oz) 12/27/2022 12:18 PM CDT Height 169.5 cm (5' 6.75) 2021 9:18 AM CD T Body Mass Index 18.53 2021 9:18 AM CDT Plan of Treatment Health Maintenance Due Date Last Done Comments Pneumococcal series for age 6-64 (1 of 2 - PCV) 1998 Hepatitis C screening for ag e 18-79 2010 Depression screening for age 12+ 07/11/2022 07/11/2021, 07/09/2021, 01/04/2020, Additional history exists BMI (ht and wt on same day) for age 18+ 2022 2021, 08/27/2021, 07/09/2021, Additional history exists COVID-19 vaccine series (3 - 2022-24 season) 2022 06/09/2020, 05/19/2020 Influenza for age 9-49 12/28/2023 2, 02/20/2021, 01/19/2020, Additional history exists Pap test for age 21-65 07/09/2024 2, 10/14/2018, 06/28/2015 Tetanus booster 02/29/2032 02/28/2022, 06/26, 10/22/2010, Additional history exists HIV for age 15-65 Completed 2021, , 06/28/2015 Tdap Completed 02/28/2022, 06/26, 10/22/2010 Procedures Procedure Name Priority Date/Time Associated Diagnosis Comments ANTI HIV 1/2 Routine 2021 10:18 AM CDT Encounter for supervision of normal first in first trimester AUTO HIKER THIN PREP PAP SCREEN IMAGED Routine 07/09/2021 10:00 AM CDT Cervical cancer screening from Last 3 Months or Most Recently Relevant to Health Maintenance Results * ANTI HIV 1/2 (2021 10:18 AM CDT) HIV-1/HIV-2 ANTIBODY Non-Reacti ve Non-Reacti ve 2021 4:12 PM CDT [facility] Comment:HIV-1 p24 and HIV-1/ HIV-2 Ab not detected. Blood BLOOD SPECIMEN / Unknown Venipuncture / Unknown 2021 10:18 AM CDT 2021 10:18 AM CDT Malka Norton MD SEND OUTS [facility] LABORAT[facility] [address] [place] [address], [place] * AUTO HIKER THIN PREP PAP SCREEN IMAGED (07/09/2021 10:00 AM CDT) Case Report Gynecologic Cytology Report ? Case: [id number] ? Authorizing Provider: ??Malka Norton MD Collected: ? 07/09/2021 1000 ? Ordering Location: ? [facility] ?? Received: ?07/09/2021 1114 ? Clinic ? First Screen: ?Aniceto Jc ? Specimen: ?AUTO HIKER ThinPrep Vial Screening, Cervical ? 07/17/2021 5:29 PM CDT [facility] ENTRAL LABORATORY INTERPRETATION/ RESULT NEGATIVE FOR INTRAEPITHELIAL LESION OR MALIGNANCY (NIL) (none) 07/17/2021 5:29 PM CDT [facility] IMEN ADEQUACY Satisfactory for evaluation Endocervical component present 07/17/2021 5:29 PM CDT [facility] ENTRAL LABORATORY HPV REQUEST HPV if ASCUS 07/17/2021 5:29 PM CDT [facility] ENTRAL LABORATORY Date of LMP 02/202107/17/2021 5:29 PM CDT [facility] Last Pap Date 10/14/18 07/17/2021 5:29 PM CDT [facility] Last Pap Result NIL 5:29 PM CDT [facility] Abnormal Pap or [place] Bx in last 5 years No 07/17/2021 5:29 PM CDT [facility] Menstrual Status Regular Periods 07/17/2021 5:29 PM CDT [facility] [place] Bx Done Today No 07/17/2021 5:29 PM CDT [facility] Additional Information None given 07/17/2021 5:29 PM CDT [facility] Comment: Cytology is screened at [facility] Central Laboratory - [address] [address] and [facility] - [address] [place] [address] and [facility] - [address] [place] [address] Interpreted at [facility], Central Laboratory - [address], [place] [address] Automated Review Successful 07/17/2021 5:29 PM CDT [facility] Comment:Specimen processed s uccessfully by automated embossing toolsetter device, ThinPrep Imaging System, [employer] Note The pap test is a screening technique, not a diagnostic procedure. It is used primarily to screen for squamous cancers and precursor lesions. Published studies have shown that it is subject to both false negative and false positive results. The pap test should not be used as the sole means to diagnose or exclude pre-malignant and malignant lesions. 07/17/2021 5:29 PM CDT [facility] EN[facility]AL LAB[facility]ORY Other (Cervical) Non-Blood / Unknown 07/09/2021 10:00 AM CDT 07/09/2021 11:14 AM CDT Malka Norton MD PATHOLOGY/CYTOL OGY [facility] [address] [place] [address], from Last 3 Months or Most Recently Relevant to Health Maintenance Advance Directives * Full Code (Latest Code Status on File) Date Activated Date Inactivated Comments 01/27/2020 8:43 AM 01/27/2020 3:39 PM Question Answer Comments Code Status Discussion: Not Discussed Care Teams Clinical Manager Home Care Relationship Specialty Start Date End Date Tara Villalta MD [address] [place] [id number] PCP - General Internal Medicine 06/28/15 Tara Villalta MD [address] [place] [id number] Internal Medicine 06/28/15
== END 2023-11-27 08:39 | disposition home or self-care (01) ==
LOC: NFLDREF 11-28 10:35
PROVIDERS: PCP Family Medicine; Referring Provider Family Medicine; Visit Provider Nurse Practitioner Family
DX: R82.90 Unspecified abnormal findings in urine (principal); N89.8 Other specified noninflammatory disorders of vagina; N94.89 Other specified conditions associated with female genital organs and menstrual cycle; Z3A.01 Less than 8 weeks gestation of pregnancy
CPT/HCPCS: 87086

== ENCOUNTER 2023-12-25 08:01 | Outpatient (CLI) | payer OTHER, SELFPAY ==
--- NOTE | 2023-12-25 08:15 | CRLHL7_ITS ---
For Patients: As a result of the Cures Act, medical imaging exams and procedure reports are released immediately into your electronic medical record. You may view this report before your referring provider. If you have questions, please contact your health care provider. INDICATION: First trimester scan, establish dates. COMPARISON: None. TECHNIQUE: Real-time hare-scale imaging of the pelvis was performed. FINDINGS: Sonographic imaging demonstrates a single living intrauterine gestation. The embryo demonstrates a regular cardiac rate measuring 169 beats per minute. The embryo`s crown-rump length measurement of 3.9 cm corresponds to a gestational age of 10 weeks 6 days with a sonographic due date of 07/16/2024. There is a normal-appearing yolk sac. There are no gross abnormalities noted within the embryo at this early state of development. The gestational sac has a normal appearance. There is no evidence of a perigestational hemorrhage. The amount of fluid within the sac appears appropriate for gestational age. The cervix is closed. The myometrium appears normal. Left ovary not visualized. Corpus luteal cyst right ovary. There are no suspicious fluid collections noted in the cul-de-sac. IMPRESSION: Single living intrauterine with sonographic gestational age 10 weeks 6 days and sonographic due date of 07/16/2024. Dictated by Shaan Cordero MD @ 12/25/2023 1:46:58 PM (Electronically Signed)
== END 2023-12-25 08:02 | disposition home or self-care (01) ==
LOC: US 08:02
PROVIDERS: PCP Family Medicine; Visit Provider Physician Assistant
DX: Z34.91 Encounter for supervision of normal pregnancy, unspecified, first trimester (principal); Z3A.10 10 weeks gestation of pregnancy
CPT/HCPCS: 76801

== ENCOUNTER 2023-12-25 09:16 | Outpatient (CLI) | payer OTHER, SELFPAY ==
--- OUTSIDE RECORDS SUMMARY | 2023-12-25 09:20 | XMS_ITS | Clinical Summary ---
Author Organization [facility] Address [place], [place] [address] Care Team Providers Care Supplies Packer Name Role Phone Tara Villalta MD Primary Care Provider [phone] Tara Villalta MD Unavailable [phone] Allergies Active Allergy Reactions Criticality Noted Date [...] Name Administration Dates Next Due COVID-19 vaccine ([employer] 30mcg/0.3mL) PF, MDV 06/09/2020,05/19/2020 DTaP 07/07/1997, 4,03/26/1993,01/08,1992 [...] supervision of normal first in first trimester WAREHOUSE PROCESSOR THIN PREP PAP SCREEN IMAGED Routine 07/09/2021 10:00 AM CDT Cervical cancer screening from Last 3 Months or Most Recently Relevant to Health Maintenance Results * ANTI HIV 1/2 (2021 10:18 AM CDT) HIV-1/HIV-2 ANTIBODY Non-Reacti ve Non-Reacti ve 2021 4:12 PM CDT [facility] TRAL LABORATORY Comment:HIV-1 p24 and HIV-1/ HIV-2 Ab not detected. Blood BLOOD SPECIMEN / Unknown Venipuncture / Unknown 2021 10:18 AM CDT 2021 10:18 AM CDT Malka Norton MD SEND OUTS [facility]-CENTRAL LABORATORY [address] [place] [address], [place] * WAREHOUSE PROCESSOR THIN PREP PAP SCREEN IMAGED (07/09/2021 10:00 AM CDT) Case Report Gynecologic Cytology Report ? Case: [id number] ? Authorizing Provider: ??Malka Norton MD Collected: ? 07/09/2021 1000 ? Ordering Location: ? [facility] ?? Received: ?07/09/2021 1114 ? Clinic ? First Screen: ?Aniceto Jc ? Specimen: ?WAREHOUSE PROCESSOR ThinPrep Vial Screening, Cervical ? 07/17/2021 5:29 PM CDT [facility] ENTRAL LABORATORY INTERPRETATION/ RESULT NEGATIVE FOR INTRAEPITHELIAL LESION OR MALIGNANCY (NIL) (none) 07/17/2021 5:29 PM CDT [facility] EN[facility] LAB[facility] IMEN ADEQUACY Satisfactory for evaluation Endocervical component present 07/17/2021 5:29 PM CDT [facility] ENTRAL LABORATORY HPV REQUEST HPV if ASCUS 07/17/2021 5:29 PM CDT [facility] Date of LMP 02/202107/17/2021 5:29 PM CDT [facility] ENTRAL LABORATORY Last Pap Date 10/14/18 07/17/2021 5:29 PM CDT [facility] ENTRAL LABORATORY Last Pap Result NIL 5:29 PM CDT [facility] ENTRAL LABORATORY Abnormal Pap or [place] Bx in last 5 years No 07/17/2021 5:29 PM CDT [facility] ENTRAL LABORATORY Menstrual Status Regular Periods 07/17/2021 5:29 PM CDT [facility] ENTRAL LABORATORY [place] Bx Done Today No 07/17/2021 5:29 PM CDT [facility] ENTRAL LABORATORY Additional Information None given 07/17/2021 5:29 PM CDT [facility] ENTRAL LABORATORY Comment: Cytology is screened at [facility] Central Laboratory - [address], [place] [address] and [facility] Laboratory - [address] [place] [address] and [facility] - [address] [place] [address] Interpreted at [facility], Central Laboratory - [address], [place] [address] Automated Review Successful 07/17/2021 5:29 PM CDT [facility] ENTRAL LABORATORY Comment:Specimen processed s uccessfully by automated k 12 principal device, ThinPrep Imaging System, [employer] Note The pap test is a [...] and malignant lesions. 07/17/2021 5:29 PM CDT [facility] ENTRAL LABORATORY Other (Cervical) Non-Blood / Unknown 07/09/2021 10:00 AM CDT 07/09/2021 11:14 AM CDT Malka Norton MD PATHOLOGY/CYTOL OGY [facility]-CENTRAL LABORATORY [address] [place] [address], from Last 3 Months or Most Recently Relevant to Health Maintenance Advance Directives * Full Code (Latest Code Status on File) Date Activated Date Inactivated Comments 01/27/2020 8:43 AM 01/27/2020 3:39 PM Question Answer Comments Code Status Discussion: Not Discussed Care Teams Supplies Packer Relationship Specialty Start Date End Date Tara Villalta MD [address] [place] [id number] PCP - General Internal Medicine 06/28/15 Tara Villatla MD [address] [place] [id number] Internal Medicine 06/28/15
[2023-12-25 13:07] LABS: Chlamydia DNA Amplified* NOT DETECTED (No Detected); GC DNA Amplified* NOT DETECTED (No Detected)
== END 2023-12-25 09:17 | disposition home or self-care (01) ==
PROVIDERS: PCP Family Medicine; Visit Provider Physician Assistant
DX: Z34.81 Encounter for supervision of other normal pregnancy, first trimester (principal); Z67.10 Type A blood, Rh positive
CPT/HCPCS: 86592; 86703; 86704; 86706; 86762; 86787; 86803; 86850; 86900; 86901; 87086; 87340; 87491; 87591

== ENCOUNTER 2024-03-04 12:48 | Outpatient (CLI) | payer OTHER, SELFPAY ==
--- OUTSIDE RECORDS SUMMARY | 2024-03-04 12:51 | XMS_ITS | Clinical Summary ---
Author Organization [employer] [facility] Address [place], [place] [address] Care Team Providers Care Environmental Protection Forester Name Role Phone Tara Villalta MD Primary Care Provider [phone] Tara Villalta MD Unavailable [phone] Allergies Active Allergy Reactions Criticality Noted Date [...] Pap smear for cervical cancer screening 06/27/19 22 Overview (08/16/2021): 06/2021 NIL. PLAN: Pap/HPV testing due 06/2024 Pelvic pain 01/27/2020 Palpitations 10/14/2018 Ureteral stone 10/14/2018 Overview (10/17/2018): 09/2018: Your kidney stone was a calcium [...] injury) 08/04/2018 Chronic groin pain, left 03/21/2017 Overview (10/14/2018): Pain is worse with sitting and rest, [...] 10/14/18 Tara Villalta MD Secondary amenorrhea 01/09/2017 Overview (10/16/2017): No menses 09/21/2016-02/11. Normal pelvic ultrasound 11/2016. Labs normal and progesterone withdrawal challenge started 02/10/17 with immediate withdrawal bleeding. 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 Chlamydia infection 09/24/2016 01/10/20 17 Depression 06/29/2015 10/15/2018 Overview (01/09/2017): Establishing with Elza Gonzalez, sertraline 50mg daily Immunizations Name Administration Dates Next Due COVID-19 vaccine ([employer] 30mcg/0.3mL) PF, MDV 06/09/2020,05/19/2020 DTaP 07/07/1997, 4,03/26/1993,01/08,1992 [...] 07/09/2021, Additional history exists COVID-19 vaccine series (2023- season) 2023 06/09/2020, 05/19/2020 Influenza for age 9-49 12/28/2023 [...] supervision of normal first in first trimester SHANK SKINNER THIN PREP PAP SCREEN IMAGED Routine 07/09/2021 10:00 AM CDT Cervical cancer screening from Last 3 Months or Most Recently Relevant to Health Maintenance Results * ANTI HIV 1/2 (2021 10:18 AM CDT) HIV-1/HIV-2 ANTIBODY Non-Reacti ve Non-Reacti ve 2021 4:12 PM CDT [facility] Comment:HIV-1 p24 and HIV-1/ HIV-2 Ab not detected. Blood BLOOD SPECIMEN / Unknown Venipuncture / Unknown 2021 10:18 AM CDT 2021 10:18 AM CDT Malka Norton MD SEND OUTS [facility] [address] [place] [address], [place] * SHANK SKINNER THIN PREP PAP SCREEN IMAGED (07/09/2021 10:00 AM CDT) Case Report Gynecologic Cytology Report ? Case: [id number] ? Authorizing Provider: ??Malka Norton MD Collected: ? 07/09/2021 1000 ? Ordering Location: ? [facility] ?? Received: ?07/09/2021 1114 ? Clinic ? First Screen: ?Baccam, Minie ? Specimen: ?SHANK SKINNER ThinPrep Vial Screening, Cervical ? 07/17/2021 5:29 PM CDT [facility] INTERPRETATION/ RESULT NEGATIVE FOR INTRAEPITHELIAL LESION OR MALIGNANCY (NIL) (none) 07/17/2021 5:29 PM CDT [facility] IMEN ADEQUACY Satisfactory for evaluation Endocervical component present 07/17/2021 5:29 PM CDT [facility] HPV REQUEST HPV if ASCUS 07/17/2021 5:29 PM CDT [facility] Date of LMP 02/202107/17/2021 5:29 PM CDT [facility] Last Pap Date 10/14/18 07/17/2021 5:29 PM CDT [facility] Last Pap Result NIL 5:29 PM CDT [facility] Abnormal Pap or Ethel Bx in last 5 years No 07/17/2021 5:29 PM CDT [facility] Menstrual Status Regular Periods 07/17/2021 5:29 PM CDT [facility] Ethel Bx Done Today No 07/17/2021 5:29 PM CDT [facility] Additional Information None given 07/17/2021 5:29 PM CDT [facility] Comment: Cytology is screened at [facility], Central Laboratory - [address], [place] [address] and [facility] - [address] [place] [address] and [facility] - [address] [place] [address] Interpreted at [facility] - [address], [place] [address] Automated Review Successful 07/17/2021 5:29 PM CDT [facility] Comment:Specimen processed s uccessfully by automated icu rn device, ThinPrep Imaging System, [employer] Note The pap test is a [...] and malignant lesions. 07/17/2021 5:29 PM CDT [facility]-C ENTRAL LABORATORY Other (Cervical) Non-Blood / Unknown 07/09/2021 10:00 AM CDT 07/09/2021 11:14 AM CDT Malka Norton MD PATHOLOGY/CYTOL OGY [facility] [address] [place] [address], from Last 3 Months or Most Recently Relevant to Health Maintenance Advance Directives * Full Code (Latest Code Status on File) Date Activated Date Inactivated Comments 01/27/2020 8:43 AM 01/27/2020 3:39 PM Question Answer Comments Code Status Discussion: Not Discussed Care Teams Environmental Protection Forester Relationship Specialty Start Date End Date Tara Villalta MD [address] [place] [address] PCP - General Internal Medicine 06/28/15 Tara Villalta MD [address] [place] [id number] Internal Medicine 06/28/15
--- NOTE | 2024-03-04 13:00 | CRLHL7_ITS ---
For Patients: As a result of the Century Cures Act, medical imaging exams and procedure reports are released immediately into your electronic medical record. You may view this report before your referring provider. If you have questions, please contact your health care provider. INDICATION: Evaluate anatomy. COMPARISON: 12/25/2023 TECHNIQUE: Real time hare scale imaging of the fetus was performed as well as color Doppler analysis of the umbilical vessels. FINDINGS: Sonographic imaging demonstrates a single living intrauterine gestation. Fetus demonstrates a regular cardiac rate of 154 beats per minute. Fetus has a breech position. The placenta lies anteriorly without evidence of placenta previa. Placental edge 2.7 cm from the internal cervical os. Amniotic fluid volume appears normal. Single deepest vertical pocket: 5.8 cm. The cervix is closed and measures 3.9 cm in length. The composite ultrasound gestational age is calculated at 20 weeks 2 days with an estimated sonographic due date of 07/20/2024. The estimated weight is 346 grams which lies at the 39th %. The following biometric measurements were obtained: Biparietal diameter: 4.5 cm/19 weeks 4 days 15th% Head circumference: 16.9 cm/19 weeks 4 days 10th% Abdominal circumference: 15.1 cm/20 weeks 2 days 40th% Femur length: 3.4 cm/20 weeks 4 days 48th% The HC/AC ratio measures: 1.12 range (1.07-1.25) On anatomic survey, there is a normal appearance of the cerebral ventricles, cavum septi pellucidi, cisterna magna and cerebellum. The nose, lips, and facial profile appear normal. The cervical, thoracic and lumbar spine are well visualized and appear normal. There is a normal four-chamber heart view and the left and right ventricular outflow tracts appear normal. The diaphragm and stomach appear normal. The kidneys and bladder also appear normal. There is a normal three-vessel cord and there is an eccentric placental cord insertion site 2.5 from the placental edge. The four extremities appear normal. IMPRESSION: Concordance of clinical and sonographic dating. No intrinsic abnormalities noted on anatomic survey. Eccentric placental cord insertion 2.5 cm from the placental edge. Dictated by Shaan Cordero MD @ 03/05/2024 10:12:02 AM (Electronically Signed)
== END 2024-03-04 12:49 | disposition home or self-care (01) ==
LOC: US 12:49
PROVIDERS: PCP Family Medicine; Visit Provider Obstetrics & Gynecology
DX: Z34.92 Encounter for supervision of normal pregnancy, unspecified, second trimester (principal); Z3A.20 20 weeks gestation of pregnancy
CPT/HCPCS: 76805

== ENCOUNTER 2024-04-29 08:31 | Outpatient (CLI) | payer OTHER, SELFPAY | END 2024-04-29 08:32 | disposition home or self-care (01) | LOC: NFLDREF 05-02 03:37 | PROVIDERS: PCP Family Medicine; Referring Provider Family Medicine; Visit Provider Obstetrics & Gynecology | DX: Z34.83 Encounter for supervision of other normal pregnancy, third trimester (principal) | CPT/HCPCS: 86592 ==

== ENCOUNTER 2024-06-24 08:51 | Outpatient (CLI) | payer OTHER, SELFPAY | END 2024-06-24 08:52 | disposition home or self-care (01) | LOC: NFLDREF 06-25 14:40 | PROVIDERS: PCP Family Medicine; Referring Provider Family Medicine; Visit Provider Obstetrics & Gynecology | DX: Z34.93 Encounter for supervision of normal pregnancy, unspecified, third trimester (principal); Z3A.36 36 weeks gestation of pregnancy | CPT/HCPCS: 87081; 87653 ==

== ENCOUNTER 2024-06-29 12:06 | Outpatient (CLI) | payer OTHER, SELFPAY | END 2024-06-29 12:07 | disposition home or self-care (01) | PROVIDERS: PCP Family Medicine; Visit Provider Obstetrics & Gynecology | DX: O26.843 Uterine size-date discrepancy, third trimester (principal); Z3A.37 37 weeks gestation of pregnancy | CPT/HCPCS: 76816; 76819; 76820 ==

== ENCOUNTER 2024-06-29 19:11 | Inpatient (IN) | payer OTHER, SELFPAY ==
[2024-06-29 19:21] VITALS: BP 130/75; PULSE 60; TEMP 36.8
[2024-06-29 19:28] VITALS: BMI 21.9
[2024-06-29 21:07] LABS: Basophils Absolute Auto 0.01 K/uL (0.00-0.30); Basophils Percent Auto 0.1 % (0.0-3.0); Eosinophils Absolute Auto 0.04 K/uL (0.00-0.50); Eosinophils Percent Auto 0.5 % (0.0-7.0); Hematocrit 36.8 % (33.0-51.0); Hemoglobin* 12.5 gm/dL (12.0-16.0); Immature Granulocytes Abs Auto 0.08 K/uL (0.00-0.30); Lymphocytes Absolute Auto 1.55 K/uL (0.90-2.90); Mean Corpuscular HGB Conc 34 gm/dL (32-36); Mean Corpuscular Hemoglobin 31 pg (26-34); Mean Corpuscular Volume 92 fL (80-100); Monocytes Percent Auto 9.5 % (0.0-11.0); Neutrophils Absolute Auto 5.33 K/uL (1.7-7.0); Neutrophils Percent Auto 68.9 % (42.0-72.0); Platelet Count* 209 K/uL (140-440); RDW Coefficient of Variation % 12.3 % (11.5-15.5); Slide Review Reflex No; White Blood Count* 7.75 K/uL (4.50-11.00)
--- NOTE | 2024-06-29 21:33 | W.PM.LDBA ---
Subjective History of Present Illness Time Seen by Provider: 21:39 Date Seen: 06/29/24 Narrative: Patient is being admitted to Labor and Delivery for medically indicated induction of labor. She is a 33 year old at 37.1 weeks gestation. Her full history and physical was dictated by Dr. Stacy Dawson on 06/29/24. Please see this for details. She was diagnosed with severe growth restriction based on AC <3%. Active movement. Denies LOF, vaginal bleeding or abnormal vaginal discharge. Has been having contractions for almost a week now. Uncomfortable but not painful. Specific Issues/Plans Partner: Tolu. Son: Morris. Baby: Bridget [facility] by [facility] on 06/29/24, needs heart and lungs upon arrival to L&D #IUGR Severe, AC<3%. Diagnosed at 37 1/7 weeks Normal dopplers, BPP 6/8, NST reactive, total 8/10 # anxiety Currently doing well without treatment, has responded well to sertraline in the past Sertraline 50 mg QD eRx on 06/24/24 in case symptoms worsen # Hepitis B nonimmune/indeterminant: 3 dose series HEP B- 1st- given 01/29/24, 2nd dose in 1 month, 3 dose 4-6months after 2nd dose. 2nd Dose: 04/29/2024 3rd Dose due between 08/27/2024-10/27/2024 # Zirconia test 01/29/2024 Flu: 01/29/24 Covid: 03/04/2024 Tdap: 05/17/24 RSV: Deferred at 32 weeks Hgb: 06/10/24 Result: 13.1 PHQ9 and GAD7: 0 OB - Problem Based A/P Additional Plan (1) IUGR (intrauterine growth restriction): Status: Acute Plan Induction ? SVE 1.5/70/-1, moderate soft, posterior ? [place] Q2 minutes ? will admit due to severe FGR ? Pain management plan: desiring epidural - Cook cath placed at 2029 without issues. 50/50cc - Ampicillin 6 hrs after cook placement - Will assess for need for Pitocin as patient is maycol frequently right now OB Exam Physical Exam Vital signs: Temp Pulse BP 98.2 F 60 130/75 06/29/24 19:21 06/29/24 19:21 06/29/24 19:21 Narrative: Physical exam: General: No acute distress Psych: Alert and oriented x4, full affect HEENT: Normocephalic, atraumatic Heart: Regular rate and rhythm, no murmur rub or gallop Lungs: Clear to auscultation bilaterally Abdomen: Gravid. Soft, no tenderness, rebound, or guarding Skin: No lesions or rashes Lower extremities: No edema or erythema Pelvic exam: Dry perineum. 1.5/70/-1, moderate soft, posterior
[2024-06-29 22:17] VITALS: BP 112/61; PULSE 53
[2024-06-30] VITALS (52 sets, daily range): BP systolic 100–135; BP diastolic 52–80; PULSE 56–100; RESP 16–18; TEMP 36.8–37.3; O2SAT 84–100
[2024-06-30] MEDS: hydrOXYzine pamoate 25 MG CAPSULE 100 MG PO (00:30)
[2024-06-30] MEDS: AMPICILLIN 2 GM in 0.9 % SODIUM CHLORIDE Mini-bag 100 ML IVPB (02:26)
[2024-06-30] MEDS: LACTATED RINGERS 1000 ML 1,000 ML 125 ML IV ×2 (02:30→11:18)
[2024-06-30] MEDS: AMPICILLIN 1 GM in 0.9 % SODIUM CHLORIDE Mini-bag 100 ML IVPB ×2 (06:19→12:25)
[2024-06-30] MEDS: OXYTOCIN 30 unit/500 ML in NS 30 UNIT/500 ML BAG IVPB (06:20)
--- NOTE | 2024-06-30 08:16 | PM.OBPNL ---
Subjective Time Seen by Provider: 08:16 Date Seen: 06/30/24 Narrative: Deanne is a 33-year-old at 37 weeks 2 days gestational age admitted for induction of labor in the setting of severe growth restriction. Specifically, she had a growth ultrasound yesterday for size less than dates where EFW was at the 11th percentile but AC was measuring less than the 3rd percentile, normal Dopplers. She had a 10/03 BPP, with subsequent reactive NST in triage making an 12/05 study. is otherwise complicated by anxiety on sertraline. Deanne notes that her new diagnosis and plan of care yesterday was stressful, but she is feeling better about things this morning. She denies any regular/painful contractions, currently on Pitocin at 4 milliunits per minute. Cook catheter is currently in place, plan to be removed at 8:30 a.m.. She denies any vaginal bleeding or leaking of fluid. Endorses active movement. She is otherwise feeling well and internal mostly of health. Objective Exam: Vital signs reviewed and are within normal limits General: Alert and oriented, no acute distress. Seen seated upright in chair, eating breakfast. Psych: Appropriate mood and affect Abdomen: Gravid. TAUS on 06/29 confirmed cephalic presentation, EFW of 2578g at 11%ile with AC of <3%ile. MVP 7.0cm. Normal UA doppler. Last cervical exam /-1 when Cook was placed last night. NST: Category 1. Baseline of 140 beats per minute, moderate variability, accelerations present, decelerations absent [place]: Tori about every 2-5 minutes Vital Signs: Last Vital Signs Temp 98.2 F 06/30/24 07:32 Pulse 59 L 06/30/24 07:32 BP 135/74 06/30/24 07:32 Pulse Ox 99 06/30/24 07:32 Plan Plan: Deanne is a 33-year-old ongoing induction of labor at 37 weeks in the setting of newly diagnosed severe growth restriction (composite EFW 11%ile, AC <3%ile, normal dopplers). is otherwise complicated by anxiety on sertraline. - IOL was started with Cook catheter, cervix at that time was /-1. Pitocin augmentation was declined overnight, where it was started at 0630 this morning and is currently at a rate of 4mu/min. - Cook catheter is due to be removed at 0830 - Plan to continue Pitocin titration, goal of regular/painful contractions Q 2-3 minutes - Anticipate next exam at about 1030, where augmentation with amniotomy would be likely recommended. I explained my goal with AROM would be to to optimize non-pharmacologic methods of IOL in the setting of severe FGR. Patient expressed understanding and is in agreement. - heart rate tracing has been reassuring and primarily category 1 overnight. Continuous monitoring ongoing. 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 She understands what is available to her, pain is well managed at this time. - Blood type A+ - GBS positive, ampicillin ongoing (adequately treated)
[2024-06-30] MEDS: ROPIVACAINE 0.2% 100 ml 100 ML 12 MG EPIDURAL (11:23)
[2024-06-30] MEDS: LIDOCAINE 2% (PF) 5 ML VIAL EPIDURAL (11:24)
--- NOTE | 2024-06-30 11:37 | P.ANBPRC_ITS ---
[facility] Medical History (Updated 06/29/24 @ 21:48 by Jaylene Arciniega MD) anxiety ?O99.345 - Other mental disorders complicating the puerperium (ICD-10) ?F41.8 - Other specified anxiety disorders (ICD-10) Spontaneous vaginal delivery (03/2022) ?O80 - Encounter for full-term uncomplicated delivery (ICD-10) COVID-19 affecting in third trimester ?O98.513 - Other viral diseases complicating , third trimester (ICD- 10) ?U07.1 - COVID-19 (ICD-10) Surgical History (Updated 01/16/23 @ 09:50 by Barb Bright MD) S/P thoracic surgical sympathectomy (2011) ?Z98.890 - Other specified postprocedural states (ICD-10) History of laparoscopy (2018) ?Z98.890 - Other specified postprocedural states (ICD-10) Family History (Updated 01/16/23 @ 09:51 by Barb Bright MD) Maternal Grandfather Stroke, Onset Age: 80 Uncle Lung cancer Father Type 2 diabetes mellitus Social History (Updated 12/25/23 @ 09:38 by Ruthie Richard PA-C) 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: , 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[employer], 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 Exercise 3 times a week running walking biking 45 minutes Nonsmoker No drugs What is your current living situation?: I presently have a place to live Problems where you live: no known problems In the past 12 months, utilities in danger of being shut off: no In past 12 months, lack of transportation kept you from medical appts, meetings, work, or getting things needed for daily living: no In the past 12 mos, have been you worried that your food would run out before you had money to buy more?: never true In the past 12 mos, the food you bought just didn't last and you didn't have money to buy more?: never true Smoking Status: Never smoker How often does anyone, including family, friends and others, physically hurt you : never How often does anyone, including family, friends and others, insult or talk down to you: never How often does anyone, including family, friends and others, threaten you with harm: never How often does anyone, including family, friends and others, scream or curse at you: never Meds Home Medications and Allergies Home Medications ?Medication ?Instructions ?Recorded ?Confirmed ?Type vits no.126-ferrous fum 1 tab PO QDAY 10/02/23 06/29/24 History 28 mg iron-folic acid 800 mcg tablet (Classic ) Allergies Allergy/AdvReac Type Severity Reaction Status Date / Time Sulfa (Sulfonamide Allergy Severe Hives Verified 06/29/24 12:48 Antibiotics) Results Labs Labs: Laboratory Results - last 24 hr 06/29/24 20:58 WBC 7.75 RBC 4.00 Hgb 12.5 Hct 36.8 MCV 92 MCH 31 MCHC 34 RDW Coeff of Giana 12.3 Plt Count 209 Neut % (Auto) 68.9 Lymph % (Auto) 20.0 [place] % (Auto) 9.5 Eos % (Auto) 0.5 Baso % (Auto) 0.1 Neut # (Auto) 5.33 Lymph # (Auto) 1.55 [place] # (Auto) 0.70 Eos # (Auto) 0.04 Baso # (Auto) 0.01 Abs Immat Gran (auto) 0.08 Imm/Tot Granulo (auto) 1.0 Blood Type A Positive Antibody Screen NEGATIVE Vital Signs Vital Signs: Last Vital Signs Temp 98.2 F 06/30/24 07:32 Pulse 75 06/30/24 11:35 BP 106/57 L 06/30/24 11:35 Pulse Ox 100 06/30/24 11:36 Weight: 63.503 kg Height: 170.18 cm Anesthesia Procedures Epidural Insertion Patient Location: OB Start Time: 10:50 Stop Time: 11:50 Start Date: 06/30/24 Stop Date: 06/30/24 Reason for Block: procedure for pain Patient Position: sitting Performed By: Elza Munson Preanesthetic Checklist: IV checked, risks and benefits discussed, monitors and equipment checked, pre-op evaluation, timeout performed and anesthesia consent Prep: chlorhexidine gluconate Monitoring: blood pressure monitoring, continuous pulse oximetry and heart rate Approach: midline Vertebral Space: lumbar (1-5) Epidural Technique: EMANUEL saline Needle Type: Tuohy needle Injection Technique: continuous catheter (continuous catheter) Needle gauge: 17 Needle Length (cm): 10 cm Needle Insertion Depth (cm): 4 Catheter Gauge: 19 Catheter Type: multi-orifice Catheter at skin depth (cm): 10 Test Dose Result: negative and lidocaine 1.5% with epinephrine 1 to 200,000
--- NOTE | 2024-06-30 13:42 | W.PM.VAGDEL1 ---
Procedure Procedure Done: Global Procedure Details: Normal spontaneous vaginal delivery Labial and periclitoral laceration repair Events: Other ( growth restriction, anxiety) Intrapartal Events: Labor Induction Delivery augmentation: rupture of membranes Delivery monitor: external FHT Route of delivery: Laceration description: Labial Delivery repair: Vicryl Estimated blood loss (mL): 250 Anesthesia type: Epidural Disposition: floor Complications: None Narrative: Deanne is a 33 yo G 2 P 1 at 37 w 2 d GA admitted for induction of labor in the setting of growth restriction (severe by AC <3%ile). is otherwise complicated by anxiety. heart tones on admission were category 1. Her labor was induced with Cook catheter and Pitocin and epidural was utilized for pain management. Status of bag of partida: AROM performed intrapartum, with return of clear fluid. heart tones during active labor were primarily category 1, intermittent category 2 for intermittent variable decelerations. She was complete at 1228 and started pushing at 1234. She made excellent descent throughout the second stage of labor, and had a normal spontaneous vaginal delivery at 1239. heart tones during second stage of labor were category 2 for variable decelerations, with rapid return to normal baseline. Baby delivered OA, restituted FAHAD and the anterior and posterior shoulders delivered without difficulty. Nuchal cord: none. The cord was clamped and cut after delayed cord clamping. Active management of the third stage occurred with IV pitocin and gentle cord traction and the placenta delivered spontaneous and intact at 1244. Cord gases sent: no Cord blood sent for ABO: no details: - Liveborn female fetus at 1239 - weight pending at time of documentation - APGARs were 8 and 9 at 1 and 5 minutes respectively Perineum and vagina were inspected, and the following lacerations were noted: Superficial right labial laceration and periclitoral laceration. Repair was completed in the usual fashion with 3-0 Vicryl under existing epidural analgesia. Excellent hemostasis was noted. Fundal massage demonstrated excellent uterine tone. Excellent hemostasis was noted. The following counts were correct: sponges, needles, instruments. Mother and in stable condition following the . [place] Infant Gender: Female presentation: vertex Placental Delivery Description: Spontaneous Cord Description: 3 Vessels
--- NOTE | 2024-06-30 13:48 | PM.OBPNL ---
Subjective Time Seen by Provider: 12:20 Date Seen: 06/30/24 Narrative: Deanne is a 33-year-old at 37 weeks 2 days gestational age admitted for induction of labor in the setting of severe growth restriction. otherwise complicated by anxiety, no medications. Induction course has included Cook catheter and IV Pitocin. I last assessed her at about 10 30, at which time her cervix was 5 100 and-1. Patient noted significant pain and shakiness. She requested epidural at that time. She is now resting comfortably. Pitocin was turned off due to tachy systole without heart rate changes. Endorses some bloody show, no leaking. Endorses active movement. Objective Exam: General: Alert and oriented, no acute distress. Seen seated upright in chair, eating breakfast. Psych: Appropriate mood and affect Abdomen: Gravid. Cervix: Bloody show noted on pad. Cervix is 10/100/0, s/p AROM with return of clear fluid. NST: Category 1-2. Baseline of 140 beats per minute, moderate variability, accelerations present, intermittent variable or early decelerations. [place]: Tori about every 2 minutes Vital Signs: Last Vital Signs Temp 98.7 F 06/30/24 12:44 Pulse 72 06/30/24 13:46 Resp 18 06/30/24 11:37 BP 126/80 06/30/24 13:46 Pulse Ox 100 06/30/24 12:26 Plan Plan: Deanne is a 33-year-old ongoing induction of labor at 37 weeks in the setting of newly diagnosed severe growth restriction (composite EFW 11%ile, AC <3%ile, normal dopplers). is otherwise complicated by anxiety on sertraline. - IOL was started with Cook catheter, augmented with Pitocin. Pitocin is now off in the setting of tachy systole without heart rate changes. Category 1 heart rate tracing at present. 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
[2024-06-30] MEDS: ACETAMINOPHEN 500 MG TABLET 1000 MG PO (20:30)
[2024-07-01 00:24] VITALS: BP 104/64; PULSE 58; RESP 16; TEMP 36.8; O2SAT 98
[2024-07-01 03:44] VITALS: BP 110/70; PULSE 62; RESP 16; TEMP 36.6; O2SAT 98
[2024-07-01 06:43] LABS: Hemoglobin* 12.4 gm/dL (12.0-16.0)
[2024-07-01 07:45] VITALS: BP 119/76; PULSE 69; RESP 16; TEMP 37.1; O2SAT 97
[2024-07-01] MEDS: DOCUSATE SODIUM 100 MG CAPSULE PO (07:47)
--- NOTE | 2024-07-01 09:16 | P.DS_ITS ---
DS: Providers Provider Date Seen: 07/01/24 Date of admission: 06/29/24 19:11 Primary care physician: Barb Bright MD Admitting Clinician: Jaylene Arciniega MD Attending Physician on discharge: Smita Villa CNM Date of Discharge: 07/01/24 DS: Diagnosis Discharge Diagnosis (1) care and examination of lactating mother: Status: Acute Exam Narrative: Exam Narrative: VSS, afebrile GENERAL APPEARANCE: ?normal affect, alert, no distress MOOD: ?appropriate HEENT: normocephalic, neck supple, full ROM CHEST: ?Symmetrical chest wall movement. ?Normal respiratory effort. ?Clear to auscultation HEART: ?regular rate and rhythm ABDOMEN: ?soft, non-tender. Uterine fundus is firm, at Umbilicus, Midline and is appropriate for the stage of recovery. ?Bowel sounds present. PERINEUM: ?mild edema of the perineum, there is a labial laceration that is healing well. EXTREMITIES: ?normal and no edema Const: Vital Signs, click to edit/add: Vital Signs - 24 hr 06/30/24 11:10 06/30/24 11:15 06/30/24 11:19 Temperature Pulse Rate Pulse Rate [Pulse Oximeter] Respiratory Rate Blood Pressure Blood Pressure [Le ft Arm] Pulse Oximetry 100 100 [facility] 11:21 06/30/24 11:23 06/30/24 11:25 Temperature Pulse Rate 64 66 Pulse Rate [Pulse Oximeter] Respiratory Rate Blood Pressure 131/72 130/74 Blood Pressure [Le ft Arm] Pulse Oximetry 100 [facility] 11:26 06/30/24 11:27 06/30/24 11:29 Temperature Pulse Rate 78 65 Pulse Rate [Pulse Oximeter] Respiratory Rate Blood Pressure 128/73 126/73 Blood Pressure [Le ft Arm] Pulse Oximetry 100 Oxygen Delivery Pa [facility] 06/30/24 11:31 06/30/24 11:33 06/30/24 11:35 Temperature Pulse Rate 78 77 75 Pulse Rate [Pulse Oximeter] Respiratory Rate Blood Pressure 120/67 126/72 106/57 L Blood Pressure [Le ft Arm] Pulse Oximetry 100 [facility] 11:36 06/30/24 11:37 06/30/24 11:37 Temperature 98.2 F Pulse Rate 72 Pulse Rate [Pulse Oximeter] Respiratory Rate 18 Blood Pressure 102/55 L Blood Pressure [Le ft Arm] Pulse Oximetry 100 Oxygen Delivery Pa [facility] 06/30/24 11:39 06/30/24 11:41 06/30/24 11:45 Temperature Pulse Rate 78 78 Pulse Rate [Pulse Oximeter] Respiratory Rate Blood Pressure 109/55 L 105/59 L Blood Pressure [Le ft Arm] Pulse Oximetry 100 Oxygen Delivery Pa [facility] 06/30/24 11:46 06/30/24 11:50 06/30/24 11:51 Temperature Pulse Rate 76 Pulse Rate [Pulse Oximeter] Respiratory Rate Blood Pressure 104/58 L Blood Pressure [Le ft Arm] Pulse Oximetry 100 100 Oxygen Delivery [facility] 06/30/24 11:54 06/30/24 11:56 06/30/24 12:00 Temperature Pulse Rate 82 86 Pulse Rate [Pulse Oximeter] Respiratory Rate Blood Pressure 105/58 L 100/57 L Blood Pressure [Le ft Arm] Pulse Oximetry 100 Oxygen Delivery Pa [facility] 06/30/24 12:01 06/30/24 12:04 06/30/24 12:06 Temperature Pulse Rate 90 Pulse Rate [Pulse Oximeter] Respiratory Rate Blood Pressure 102/55 L Blood Pressure [Le ft Arm] Pulse Oximetry 100 100 Oxygen Delivery Pa [facility] 06/30/24 12:10 06/30/24 12:11 06/30/24 12:15 Temperature Pulse Rate 89 78 Pulse Rate [Pulse Oximeter] Respiratory Rate Blood Pressure 100/55 L 111/66 Blood Pressure [Le ft Arm] Pulse Oximetry 100 Oxygen Delivery Pa [facility] 06/30/24 12:16 06/30/24 12:19 06/30/24 12:21 Temperature Pulse Rate 76 Pulse Rate [Pulse Oximeter] Respiratory Rate Blood Pressure 111/65 Blood Pressure [Le ft Arm] Pulse Oximetry 100 100 Oxygen Delivery Pa [facility] 06/30/24 12:22 06/30/24 12:24 06/30/24 12:26 Temperature Pulse Rate 93 Pulse Rate [Pulse Oximeter] Respiratory Rate Blood Pressure 106/59 L Blood Pressure [Le ft Arm] Pulse Oximetry 84 L 100 Oxygen Delivery Pa thod 06/30/24 12:34 06/30/24 12:44 06/30/24 12:44 Temperature 98.7 F Pulse Rate 100 93 Pulse Rate [Pulse Oximeter] Respiratory Rate Blood Pressure 118/70 125/65 Blood Pressure [Le ft Arm] Pulse Oximetry Oxygen Delivery Pa thod 06/30/24 12:44 06/30/24 12:46 06/30/24 13:00 Temperature Pulse Rate 87 Pulse Rate [Pulse Oximeter] Respiratory Rate 16 16 Blood Pressure 120/63 Blood Pressure [Le ft Arm] Pulse Oximetry Oxygen Delivery Pa [facility] 06/30/24 13:01 06/30/24 13:16 06/30/24 13:16 Temperature Pulse Rate 85 78 Pulse Rate [Pulse Oximeter] Respiratory Rate 16 Blood Pressure 121/67 120/65 Blood Pressure [Le ft Arm] Pulse Oximetry Oxygen Delivery Pa thod 06/30/24 13:31 06/30/24 13:31 06/30/24 13:46 Temperature Pulse Rate 75 72 Pulse Rate [Pulse Oximeter] Respiratory Rate 16 Blood Pressure 119/65 126/80 Blood Pressure [Le ft Arm] Pulse Oximetry Oxygen Delivery Pa [facility] 06/30/24 13:46 06/30/24 14:01 06/30/24 14:01 Temperature Pulse Rate 69 Pulse Rate [Pulse Oximeter] Respiratory Rate 16 16 Blood Pressure 127/67 Blood Pressure [Le ft Arm] Pulse Oximetry Oxygen Delivery Pa thod 06/30/24 14:16 06/30/24 14:16 06/30/24 14:31 Temperature Pulse Rate 64 100 Pulse Rate [Pulse Oximeter] Respiratory Rate 16 Blood Pressure 129/72 132/80 Blood Pressure [Le ft Arm] Pulse Oximetry Oxygen Delivery Pa [facility] 06/30/24 14:31 06/30/24 18:30 06/30/24 21:05 Temperature 99.1 F 98.4 F Pulse Rate Pulse Rate [Pulse Oximeter] 66 71 Respiratory Rate 16 16 16 Blood Pressure Blood Pressure [Le ft Arm] 119/75 111/61 Pulse Oximetry 97 97 Oxygen Delivery Pa [facility] Room Air Room Air 07/01/24 00:24 07/01/24 03:44 07/01/24 07:45 Temperature 98.3 F 97.9 F 98.7 F Pulse Rate Pulse Rate [Pulse Oximeter] 58 L 62 69 Respiratory Rate 16 16 16 Blood Pressure Blood Pressure [Le ft Arm] 104/64 110/70 119/76 Pulse Oximetry 98 98 97 Oxygen Delivery Me thod Room Air Room Air Room Air Documenting provider has reviewed patient's vital signs: yes OB - DS: Summary Hospital Course Hospital Course: Deanne is a 33 y.o. who was admitted to [facility] for labor. ?She had an uncomp licated NVD.?The patient feels well. ?The pain is well controlled with current medications. ?She has no new complaints. ?She is breast feeding and reports things are going well.? the patient has done well.? Vitals have been stable.? She has remained afebrile.? Has a good appetite, is tolerating a general diet. ?She is voiding without difficulty.? She is passing gas and has not had a bowel movement.? She is ambulating and denies any dizziness.? Has Small amount of rubra lochia. ?She is undecided on her plan for prevention. Peripartum Data Infant delivery method: Vaginal Laceration description: Labial complications: none [place] Infant Gender: Female Discharge Plan: Home Status at Discharge Functional status at discharge: independent ambulation Overall status at discharge: patient is progressing back to baseline Time Spent with Patient Time attestation: Total time spent providing and/or coordinating discharge services: Time spent: Less than 30 minutes Discharge Plan Discharge Disposition: Home, Self-Care Date of Admission: 06/29/24 19:11 Attending Provider on Discharge: Smita Villa Consulting Providers: Yuki Rogel Primary Care Provider: Barb Bright Condition: Stable Anticipated Discharge Date/Time: 07/01/24 12:00 Discharge Medications: New acetaminophen 500 mg Tablet 1,000 mg PO Q6H PRNQty: 0 0RF docusate sodium 100 mg Capsule 100 mg PO DAILY Qty: 90 0RF ibuprofen 600 mg Tablet 600 mg PO Q6H PRNQty: 60 0RF Continued Classic 28 mg iron- 800 mcg tablet 1 tab PO QDAY sertraline 50 mg tablet 50 mg PO QDAY Qty: 60 1RF Discharge Orders: Discharge Order (Routine); Ordered 07/01/24 Ordered By: Smita Villa Patient Education: OB Over the Counter Medication Information, OB Vaginal/Breast Feeding Additional Instructions: Discharge instructions were reviewed with the patient including signs and symptoms of infection and home going medications Nothing vaginally for 6 weeks: no tampons or intercourse Off Work or School for 6 weeks 2-week visit: discuss infant feeding concerns, review control options and screen for anxiety/depression. 6-week visit for an annual exam. consultation services are available to all mothers and babies for the first year after delivery.? To make an appointment, please call [phone]. Activity Level: Activity as Tolerated Discharge Diet: Regular Follow Up Appointments: [facility] [Provider Group] Forms: [employer] Info Instructions
[2024-07-01 19:40] LABS: Rapid Plasma Reagin (RPR) Non Reactive (Non Reactive)
== END 2024-07-01 14:30 | disposition home or self-care (01) | DRG 807 ==
PROVIDERS: Obstetrics & Gynecology; Admitting Provider Obstetrics & Gynecology; PCP Family Medicine; Visit Provider Obstetrics & Gynecology
DX: O36.5930 Maternal care for other known or suspected poor fetal growth, third trimester, not applicable or unspecified (principal); Z37.0 Single live birth; Z3A.37 37 weeks gestation of pregnancy; O99.824 Streptococcus B carrier state complicating childbirth; O99.344 Other mental disorders complicating childbirth; F41.9 Anxiety disorder, unspecified; O76 Abnormality in fetal heart rate and rhythm complicating labor and delivery; O70.0 First degree perineal laceration during delivery
CPT/HCPCS: 01967; 36415; 85018; 85025; 86592; 86850; 86900; 86901; 88307; A9270; J0290; J2371; J2795; J7120

== ENCOUNTER 2024-08-23 10:53 | Outpatient (CLI) | payer OTHER, SELFPAY ==
[2024-08-24 23:57] LABS: HPV Source Cervix; HPV, High Risk by TMA Not Detected
== END 2024-08-23 10:54 | disposition home or self-care (01) ==
PROVIDERS: PCP Family Medicine; Visit Provider Advanced Practice Midwife
DX: Z12.4 Encounter for screening for malignant neoplasm of cervix (principal); Z11.51 Encounter for screening for human papillomavirus (HPV)
CPT/HCPCS: 87624; 87625; 88141; 88142